=== PATIENT | female | born 1970 | race Caucasian/White ===

== ENCOUNTER 2016-10-08 07:04 | Inpatient (IN) | payer OTHER ==
[2016-10-08] VITALS (34 sets, daily range): BP systolic 103–150; BP diastolic 63–98; PULSE 35–78; RESP 15–50; TEMP 94.2–98.2; O2SAT 82–100
[~2016-10-08] VITALS: Ht 170.2 cm; Wt 71.6 kg
[2016-10-08] MEDS ORDERED: LORazepam 2 MG/ML VIAL ONE (07:19)
[2016-10-08 07:22] LABS: I-STAT POTASSIUM 2.9 MMOL/L (3.5-4.9); I-STAT SODIUM 146 MMOL/L (138-146)
[2016-10-08 07:23] LABS: AUTOMATED NEUTROPHIL # 2.8 TH/MM3 (1.8-7.7); BASOPHIL % 0.8 % (0.0-2.0); EOSINOPHIL # 0.2 TH/MM3 (0-0.4); EOSINOPHIL % 3.7 % (0.0-4.0); HEMATOCRIT 40.6 % (35.0-46.0); HEMO FLAGS DIFF FINAL; LYMPH % 33.9 % (9.0-44.0); LYMPHOCYTE # 1.8 TH/MM3 (1.0-4.8); MEAN CELL VOLUME 83.9 FL (80.0-100.0); MEAN CORPUSCULAR HGB CONC 32.3 % (32.0-36.0); MONO % 8.9 % (0.0-8.0); NEUT % 52.7 % (16.0-70.0); PLATELET COUNT 219 TH/MM3 (150-450); RED BLOOD COUNT 4.84 MIL/MM3 (4.00-5.30); RED CELL DISTRIBUTION WIDTH 16.5 % (11.6-17.2); WHITE BLOOD COUNT 5.3 TH/MM3 (4.0-11.0)
[2016-10-08] MEDS ORDERED: IOHEXOL 350 MG/ML 10 ML VIAL (for RAD DIAG) IV ONE (07:30)
[2016-10-08 07:32] LABS: APTT (PATIENT) 28.5 SEC (24.3-30.1); INTERNATIONAL NORMALIZED RATIO 1.1 RATIO; PROTHROMBIN TIME - PATIENT 12.6 SEC (9.8-11.6)
--- NOTE | 2016-10-08 07:35 | RADRPT ---
EXAM DATE/TIME: 10/08/2016 07:17 [facility] COMPARISON: No previous studies available for comparison. INDICATIONS : Stroke alert; global aphasia and paralysis in all extremites. RADIATION DOSE: 37.26 CTDIvol (mGy) This report was called by myself to Dr. Ortiz at 7: 30 hours MEDICAL HISTORY : Non-responsive. SURGICAL HISTORY : Non-responsive. ENCOUNTER: Initial ACUITY: 1 day PAIN SCALE: Non-responsive LOCATION: cranial TECHNIQUE: Multiple contiguous axial images were obtained of the head. Using automated exposure control and adj ustment of the mA and/or kV according to patient size, radiation dose was kept as low as reasonably a chievable to obtain optimal diagnostic quality images. DICOM format image data is available electro nically for review and comparison. FINDINGS: There is no evidence for intracranial hemorrhage, mass effect, mass lesions, edema, or extra-axial fl uid collections. The visualized bony structures appear intact. The ventricles are normal size for t he patient's age. There are no signs of acute infarction for technique. CONCLUSION: Unremarkable study. Elida Roman MD on October 08, 2016 at 7:30 Board Certified Radiologist. This report was verified electronically.
[2016-10-08] MEDS ORDERED: SODIUM CHLOR 0.9% 1000 ML INJ 1,000 ML IV SCH (07:38)
[2016-10-08] MEDS ORDERED: DEXAMETHASONE SOD PHOS 20 MG/5 ML VIAL IV PUSH ONE (07:45)
--- NOTE | 2016-10-08 07:45 | RADRPT ---
EXAM DATE/TIME: 10/08/2016 07:27 [facility] COMPARISON: CT BRAIN W/O CONTRAST, October 08, 2016, 7:17. INDICATIONS : Stroke alert; global aphasia and paralysis in all extremites. IV CONTRAST: 95 cc Omnipaque 350 (iohexol) IV ; Cumulative dose for multiple exams. RADIATION DOSE: 26.91 CTDIvol (mGy) ; Combined studies - Thorax/Abdomen/Pelvis MEDICAL HISTORY : Non-responsive. SURGICAL HISTORY : Non-responsive. ENCOUNTER: Initial ACUITY: 1 day PAIN SCALE: Non-responsive LOCATION: cranial TECHNIQUE: Volumetric scanning was performed using a multi-row detector CT scanner. The data was post processed with a variety of visualization algorithms including full volume maximum intensity projection, multi -planar sliding thin slab reformation, curved planar reformation, and surface rendering techniques. Using automated exposure control and adjustment of the mA and/or kV according to patient size, radiat ion dose was kept as low as reasonably achievable to obtain optimal diagnostic quality images. DICO M format image data is available electronically for review and comparison. FINDINGS: No significant vascular malformations, vessel truncation or aneurysmal dilatations are seen. CONCLUSION: Unremarkable study. Elida Roman MD on October 08, 2016 at 7:41 Board Certified Radiologist. This report was verified electronically.
[2016-10-08 07:48] LABS: BETA HCG QUANT 1 MIU/ML (0-5)
[2016-10-08] MEDS: LORazepam 2 MG/ML VIAL IV PUSH PRN ×2 (07:57→22:20)
[2016-10-08 08:00] LABS: CREATINE KINASE 73 U/L (26-192)
--- NOTE | 2016-10-08 08:09 | PD ---
HPI Chief Complaint: Stroke Alert Time Seen by Provider: 07:13 Travel History International Travel<30 days: No Contact w/Intl Traveler<30days: No Traveled to known affect area: No History of Present Illness HPI Letter and later her arrives to get some of the history. The patient on arrival is GCS([id number])=5. Apparently this patient is visiting from [facility], recently she's had multiple medication adjustments, she was taking off of her opiate pain medication as well as her benzodiazepine on the 10th of this month and was started on tizanidine. The family relates a history that the patient is giving "a lot of life lessens" to her children recently but I asked her several times if she was thinking about hurting herself and she denied. The patient 45 minutes prior to arrival this morning at approximately 06 15 was normal and then was seen by her with right wrist almost seizure-like activity. He thought that the patient was having a stroke and called 911. EMS arrived and found no focal deficits but the patient did have seizure-like activity for them and she was transported stroke alert [facility]. Patient on arrival is unable to give history but apparently did tell her prior to coming that she felt that she needed to go to the emergency department. She arrives with a ties and a being bottle for 120 pills with only 20 pills left, the daughter states that they locked up the rest of the medicine that she wouldn't need for the medication in the safe at home. The patient also did have 2 shots of alcohol last night. She is unable to give her own history at this time. [facility] Past Medical History Narrative Medical Depression, chronic pain. Past Surgical History Surgical History: Unable to Obtain Social History Alcohol Use: Yes Tobacco Use: Yes Substance Use: No Allergies-Medications (Allergen,Severity, Reaction): Coded Allergies: No Known Allergies (Unverified , 10/08/16) Reported Meds & Prescriptions Reported Meds & Active Scripts Active Reported Naproxen 375 Mg Tab 375 Mg PO BID PRN Levothyroxine (Levothyroxine Sodium) 100 Mcg Tab 100 Mcg PO DAILY Escitalopram (Escitalopram Oxalate) 10 Mg Tab 10 Mg PO DAILY Baclofen 10 Mg Tab 10 Mg PO Q8HR PRN Prednisone 10 Mg Tab 10 Mg PO DAILY Tizanidine (Tizanidine HCl) 4 Mg Cap 4 Mg PO TID Trazodone (Trazodone HCl) 100 Mg Tablet 200 Mg PO HS Review of Systems Except as stated in HPI: all other systems reviewed are Neg Physical Exam Narrative GENERAL: Well-developed well-nourished, GCS of 5, she is swallowing. SKIN: No bruising no lacerations seen on her person. HEAD: Atraumatic. Normocephalic. EYES: Pupils equal and round and reactive to light, they're dilated approximately 6 mm and equal bilaterally.. No scleral icterus. No injection or drainage. ENT: No nasal bleeding or discharge. Mucous membranes pink and moist. NECK: Trachea midline. No JVD. CARDIOVASCULAR: Regular rate and rhythm. No murmur appreciated. RESPIRATORY: No accessory muscle use. Clear to auscultation. Breath sounds equal bilaterally. GASTROINTESTINAL: Abdomen soft, non-tender, nondistended. Hepatic and splenic margins not palpable. MUSCULOSKELETAL: No obvious deformities. No clubbing. No cyanosis. No edema. NEUROLOGICAL: Awake, GCS of 5 as above. Will not follow commands. Does withdraw from pain. She is swallowing and appears to be protecting her airway. PSYCHIATRIC: Unable to assess. Data Data Last Documented VS Vital Signs Date Time Temp Pulse Resp B/P Pulse Ox O2 Delivery O2 Flow Rate FiO2 10/08/16 10:00 35 16 137/84 100 Ventilator 100 10/08/16 08:15 10/08/16 07:05 94.9 Orders Diet Npo (10/08/16 Breakfast) Activity Bed Rest (10/08/16 ) Electrocardiogram (10/08/16 ) I-Stat Creatinine (10/08/16 07:13) I-Stat Profile (10/08/16 07:13) Prothrombin Time / Inr (Pt) (10/08/16 07:13) Act Partial Throm Time (Ptt) (10/08/16 07:13) Complete Blood Count With Diff (10/08/16 07:13) Fibrinogen (10/08/16 07:13) Creatine Kinase (Cpk) (10/08/16 07:13) Troponin I (10/08/16 07:13) Ua Includes Microscopic (10/08/16 07:13) Drug Screen, Random Urine (10/08/16 07:13) Type And Screen (10/08/16 07:13) Ct Brain W/O Iv Contrast(Rout) (10/08/16 ) Cta Brain W Iv Contrast W 3d (10/08/16 07:13) Cta Neck W Iv Contrast W 3d (10/08/16 07:13) Beta Hcg (Quant/Titer) (10/08/16 07:13) Consult Neurology (10/08/16 ) Blood Glucose (10/08/16 07:13) Ecg Monitoring (10/08/16 07:13) Neuro Checks Q2HX12,Q4H (10/08/16 07:13) Nursing Bedside Swallow Assess .ONCE (10/08/16 07:13) Iv Access Insert/Monitor (10/08/16 07:13) NPO (10/08/16 07:13) Oximetry (10/08/16 07:13) Oxygen Administration (10/08/16 07:13) Resp Oxygen Porfirio C Titrat 1-4 L (10/08/16 07:13) Cath For Specimen (10/08/16 07:13) Lorazepam Inj (Ativan Inj) (10/08/16 07:19) Mri Brain W/O Contrast (10/08/16 ) Iohexol 350 Inj (Omnipaque 350 Inj) (10/08/16 07:30) (Hub Use Only)Inp Phy Cons/Ref (10/08/16 ) Lactic Acid Sepsis Protocol (10/08/16 07:38) Blood Culture (10/08/16 07:38) Sodium Chlor 0.9% 1000 Ml Inj (Ns 1000 M (10/08/16 07:38) Drug Screen, Random Urine (10/08/16 07:38) Alcohol (Ethanol) (10/08/16 07:38) Tylenol (Acetaminophen) (10/08/16 07:38) Salicylates (Aspirin) (10/08/16 07:38) Lorazepam Inj (Ativan Inj) (10/08/16 07:45) Dexamethasone Inj (Decadron Inj) (10/08/16 07:45) Thyroid Stimulating Hormone (10/08/16 07:44) Free T3 (10/08/16 07:44) Free Thyroxine (T4) (10/08/16 07:44) Levetiracetam 1000 Mg Inj (Keppra 1000 M (10/08/16 08:15) Succinylcholine Inj (Quelicin Inj) (10/08/16 08:15) Etomidate Inj (Amidate Inj) (10/08/16 08:15) Etomidate Inj (Amidate Inj) (10/08/16 08:13) Succinylcholine Inj (Quelicin Inj) (10/08/16 08:13) Propofol 1000 Mg/100 Ml Inj (Diprivan 10 (10/08/16 08:30) ^ Infusion (10/08/16 08:27) RASS (10/08/16 08:27) Neurological Rass Scale CEDRIC.Q2H (10/08/16 08:27) Chest, Single Ap (10/08/16 ) Propofol 1000 Mg/100 Ml Inj (Diprivan 10 (10/08/16 08:29) Restraints Non-Violent CEDRIC.Q3H (10/08/16 09:34) Electrocardiogram (10/08/16 ) Arterial Blood Gas (Abg) (10/08/16 ) Admit Order (Ed Use Only) (10/08/16 ) Labs Laboratory Tests Test 10/08/16 10/08/16 10/08/16 10/08/16 00:00 07:10 08:07 08:10 Urine Opiates Screen NEG Urine Barbiturates Screen NEG Urine Amphetamines Screen NEG Urine Benzodiazepines Screen POS Urine Cocaine Screen NEG Urine Cannabinoids Screen NEG White Blood Count 5.3 TH/MM3 Red Blood Count 4.84 MIL/MM3 Hemoglobin 13.1 GM/DL Bedside Hemoglobin 13.3 G/DL Hematocrit 40.6 % Bedside Hematocrit 39.0 % Mean Corpuscular Volume 83.9 FL Mean Corpuscular Hemoglobin 27.0 PG Mean Corpuscular Hemoglobin 32.3 % Concent Red Cell Distribution Width 16.5 % Platelet Count 219 TH/MM3 Mean Platelet Volume 6.8 FL Neutrophils (%) (Auto) 52.7 % Lymphocytes (%) (Auto) 33.9 % Monocytes (%) (Auto) 8.9 % Eosinophils (%) (Auto) 3.7 % Basophils (%) (Auto) 0.8 % Neutrophils # (Auto) 2.8 TH/MM3 Lymphocytes # (Auto) 1.8 TH/MM3 Monocytes # (Auto) 0.5 TH/MM3 Eosinophils # (Auto) 0.2 TH/MM3 Basophils # (Auto) 0.0 TH/MM3 CBC Comment DIFF FINAL Differential Comment Prothrombin Time 12.6 SEC Prothromb Time International 1.1 RATIO Ratio Activated Partial 28.5 SEC Thromboplast Time Fibrinogen 185 mg/dL Bedside Sodium 146 MMOL/L Bedside Potassium 2.9 MMOL/L Bedside Chloride 106 MMOL/L Bedside Blood Urea Nitrogen 8 MG/DL Bedside Creatinine 0.5 MG/DL Bedside Glucose 84 MG/DL Total Creatine Kinase 73 U/L Troponin I LESS THAN 0.02 NG/ML Free Thyroxine 1.52 NG/DL Free Triiodothyronine (T3) 2.40 PG/ML pg/dL Thyroid Stimulating Hormone 1.050 uIU/ML 3rd Gen Human Chorionic Gonadotropin, 1 MIU/ML Quant Acetaminophen Level 4.0 MCG/ML Ethyl Alcohol Level LESS THAN 3 MG/DL Blood Type B POSITIVE Antibody Screen NEGATIVE Blood Bank Comment Salicylates Level 3.0 MG/DL Lactic Acid Level 1.9 mmol/L [facility] Medical Screen Exam Complete: Yes Emergency Medical Condition: Yes Differential Diagnosis Altered mental status, stroke seems unlikely but the patient was activated stroke alert prior to arrival, overdose, suicide attempt as a possibility, bradycardia, lecture led abnormality, arrhythmia, benzodiazepine withdrawal, opiate withdrawal per Narrative Course Patient was roomed in the emergency department, GCS of 5 on arrival but is swallowing and does appear to be protecting her airway. The patient was activated the stroke alert but the history is highly suggestive of another cause. The patient was brought to CAT scan and shows no noncontrast abnormality , CTA and CTA neck were unremarkable as well. This further suggest another cause is possible. An MRI has been ordered for definitive purposes. The patient was discussed with poison control by me, I believe that there is a strong possibility this may be an intentional type tizanidine overdose. Per poison control treated symptomatically with atropine, intubation is necessary, otherwise symptomatic management. The patient was GCS of 5 and needing to go to MRI will be intubated prophylactically for airway protection. Intubation was performed smoothly with kaleidoscope and patient had no adverse effects. After intubation the patient was seen moving all 4 extremity's and attempting to self extubate. She was started on propofol drip. I was given for possible seizure-like activity in the ER though I think these are more pseudoseizures as a possibility. The patient was also given some Ativan. Keppra was ordered. The patient did become somewhat bradycardic at the latter part of her ER stay with heart rates in the mid 30s. A milligram of atropine was given with good response. She had no hypotensive episodes while in the emergency department. The patient was discussed with Dr. Marco Gan for admission to hospital and he is agreeable. I had asked her to confirm that the medication is at home and the safe and his son is at home in [place] and has gone to the safe and there are no pills in the safe. It is estimated at approximately 40 tablets of the tizanidine are missing. The family was at bedside and has been updated as to my impression of the patient. Critical Care Narrative Aggregate critical care time was 35 minutes. Time to perform other separately billable procedures was not included in the critical care time. My time did not include minutes spent treating any other patients simultaneously or on activities that did not directly contribute to the patient's treatment. The services I provided to this patient were to treat and/or prevent clinically significant deterioration that could result in: , disability, organ failure. I provided critical care services requiring my management, as noted below: Chart data review, documentation time, medication orders and management, vital sign assessments/reviewing monitor data, ordering and reviewing lab tests, ordering and interpreting/reviewing x-rays and diagnostic studies, care of the patient and discussion of the patient with the admitting physicians. Stroke Alert NIHSS NIH Stroke Scale Result: 28 NIHSS Time Completed: 07:15 Thrombolytic Contraindications Contraindications Comment: Medical cause much more likely than thromboembolic event. Also patient with multiple seizure-like activity. Procedures Procedure Narrative After the risks and benefits were discussed the following procedure was performed: INTUBATION: The patient was put in optimal position for the procedure. Rapid sequence intubation was initiated by me using 20 milligrams of etomidate IV and 100 milligrams of succinylcholine IV. The patient was intubated with a 7.5 cuffed endotracheal tube. Tube placement was confirmed by visualization of the tube and balloon passing through the cords, capnometry and subsequent chest x-ray. Breath sounds were equal and well aerated bilaterally postintubation. No breath sounds over stomach. Patient tolerated procedure well. Diagnosis Diagnosis: Primary Impression: Altered mental status Additional Impression: Overdose of muscle relaxant Admitting Physician Requests: Admit Condition: Alex Diaz MD Oct 08, 2016 08:09
[2016-10-08] MEDS ORDERED: ETOMIDATE 20 MG/10 ML VIAL ONE (08:13)
[2016-10-08] MEDS ORDERED: SUCCINYLCHOLINE CHLORIDE 200 MG/10 ML VIAL ONE (08:13)
--- NOTE | 2016-10-08 08:13 | RADRPT ---
EXAM DATE/TIME: 10/08/2016 07:27 [facility] COMPARISON: CTA BRAIN W 3D RECON, October 08, 2016, 7:27. CT BRAIN W/O CONTRAST, October 08, 2016, 7:17. INDICATIONS : Stroke alert; global aphasia and paralysis in all extremites. IV CONTRAST: 95 cc Omnipaque 350 (iohexol) IV ; Cumulative dose for multiple exams. RADIATION DOSE: 26.91 CTDIvol (mGy) ; Combined studies MEDICAL HISTORY : Non-responsive. SURGICAL HISTORY : Non-responsive. ENCOUNTER: Initial ACUITY: 1 day PAIN SCALE: Non-responsive LOCATION: neck Elevated flow velocities and ICA/CCA ratios have been found to correlate with increased degrees of vessel stenosis, calculated as percentage of diameter relative to a normal segment of distal ICA/CCA. TECHNIQUE: Volumetric scanning was performed using a multirow detector CT scanner. The data was post processed with a variety of visualization algorithms including full-volume maximum intensity projection, multip lanar sliding thin-slab reformation, curved-planar reformation, and surface-rendering techniques. Us ing automated exposure control and adjustment of the mA and/or kV according to patient size, radiatio n dose was kept as low as reasonably achievable to obtain optimal diagnostic quality images. DICOM f ormat image data is available electronically for review and comparison. FINDINGS: AORTIC ARCH: There is a three-vessel origin of the great vessels from the aorta. No evidence of ostial narrowing. RIGHT CAROTID: The common carotid artery is intact. The carotid bulb has a normal configuration without ulceration o r narrowing. The internal carotid artery lumen is smooth without stenosis. The external carotid janny ry is intact. LEFT CAROTID: The common carotid artery is intact. The carotid bulb has a normal configuration without ulceration or narrowing. The internal carotid artery lumen is smooth without stenosis. The external carotid ar hal is intact. VERTEBRALS: The vertebral arteries have a symmetric diameter. No stenotic lesions are seen. CONCLUSION: Normal examination. Elida Roman MD on October 08, 2016 at 8:10 Board Certified Radiologist. This report was verified electronically.
[2016-10-08] MEDS ORDERED: levETIRAcetam 1000 MG INJ 100 ML IV ONE (08:15)
[2016-10-08] MEDS ORDERED: SUCCINYLCHOLINE CHLORIDE 200 MG/10 ML VIAL IM ONE (08:15)
[2016-10-08] MEDS ORDERED: ETOMIDATE 20 MG/10 ML VIAL IV PUSH ONE (08:15)
[2016-10-08] MEDS ORDERED: PROPOFOL 1000 MG/100 ML INJ 100 ML ONE (08:29)
[2016-10-08 08:32] LABS: AMPHETAMINE, URINE NEG (NEG); BARBITURATES, URINE NEG (NEG); COCAINE, URINE NEG (NEG)
[2016-10-08] MEDS ORDERED: NAPR375T PO (08:34)
[2016-10-08] MEDS ORDERED: BACL10TA PO (08:34)
[2016-10-08] MEDS ORDERED: ESCI10TA PO (08:34)
[2016-10-08] MEDS ORDERED: LEVO100T5 PO (08:34)
[2016-10-08] MEDS ORDERED: TIZA4CAP3 PO (08:34)
[2016-10-08] MEDS ORDERED: PRED10 PO (08:34)
[2016-10-08] MEDS ORDERED: TRAZ100T6 PO (08:34)
[2016-10-08 08:57] LABS: FREE T3 2.4 PG/ML (2.18-3.98); FREE T4 1.52 NG/DL (0.76-1.46)
--- NOTE | 2016-10-08 09:01 | RADRPT ---
EXAM DATE/TIME: 10/08/2016 08:30 [facility] COMPARISON: No previous studies available for comparison. INDICATIONS : Stroke alert; global aphasia and paralysis in all extremites. MEDICAL HISTORY : None. SURGICAL HISTORY : None. ENCOUNTER: Initial ACUITY: 1 day PAIN SCORE: Non-responsive. LOCATION: Bilateral chest FINDINGS: ET tube is present with tip overlapping approximately 3 cm above the nona. NG tube is present with tip in the stomach. Slight linear atelectasis is seen in both lung bases without focal consolidation. There is a line overlapping the right hemithorax probably a skin fold. Heart and mediastinum are unr emarkable for technique. There is slight prominence of the left hilar shadow may be technical, howeve r consolidation or mass in this area is difficult to exclude. CONCLUSION: Slight prominence of the left hilar shadow probably technical and attention to this area on follow up chest x-rays is suggested. Elida Roman MD on October 08, 2016 at 8:58 Board Certified Radiologist. This report was verified electronically.
[2016-10-08] MEDS: PROPOFOL 1000 MG/100 ML INJ 100 ML IV SCH ×2 (09:15→10:52)
--- NOTE | 2016-10-08 10:07 | RADRPT ---
EXAM DATE/TIME: 10/08/2016 09:27 [facility] COMPARISON: CT BRAIN W/O CONTRAST, October 08, 2016, 7:17. INDICATIONS : Aphasia. MEDICAL HISTORY : Dystonia. SURGICAL HISTORY : Fusion, cervical. ENCOUNTER: Initial ACUITY: 1 day PAIN SCORE: 0/10 LOCATION: cranial TECHNIQUE: Multiplanar, multisequence MRI of the brain was performed without contrast. 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 There is no evidence for intracranial hemorrhage, edema, or extra-axial fluid collections. The ventricles are normal size for the patient's age. There are no signs of acute infarction for technique. The diffusion portion is unremarkable. CONCLUSION: Unremarkable study except for small pineal cyst of no clinical significance. Elida Roman MD on October 08, 2016 at 10:01 Board Certified Radiologist. This report was verified electronically.
[2016-10-08] MEDS ORDERED: ATROPINE SULFATE 1 MG/ML VIAL ONE (10:09)
[2016-10-08] MEDS ORDERED: ATROPINE SULFATE 1 MG/10 ML SYRINGE IV PUSH ONE (10:15)
[2016-10-08 10:41] LABS: BLOOD GAS BASE EXCESS 1.3 mmol/L (-2-2); BLOOD GAS CARBOXYHEMOGLOBIN 2.7 % (0-4); BLOOD GAS HCO3 25 mmol/L (22-26); BLOOD GAS METHEMOGLOBIN 0.8 % (0-2); BLOOD GAS O2 HGB SATURATION 96 % (90-100); BLOOD GAS OXYGEN CONTENT 18.1 Vol % (12.0-20.0); BLOOD GAS PCO2 39 mmHg (38-42); BLOOD GAS PO2 337 mmHG (61-120); BLOOD GAS TOTAL HGB 12.7 G/DL (12.0-16.0); CRITICAL VALUE NO; DRAW SITE RT RADIAL; FIO2 100 %; NUMBER OF ARTERIAL PUNCTURES 1; OXYGEN DEVICE VENTILATOR; STAT YES; TEMP CORR TO 98.6; ULNAR PULSE PRESENT; VENT SETTINGS 500/16/+5
[2016-10-08] MEDS ORDERED: POTASSIUM CHLOR 20 MEQ PREMIX 100 ML IV ONE (11:00)
[2016-10-08] MEDS ORDERED: SODIUM PHOSPHATE INJ 30 MMOL in SODIUM CHLOR 0.9% 250 ML INJ 240 ML IV PRN (12:00)
[2016-10-08] MEDS ORDERED: POTASSIUM CHLOR 40 MEQ PREMIX 100 ML IV PRN ×2 (12:00)
[2016-10-08] MEDS ORDERED: POTASSIUM PHOSPHATE INJ 30 MMOL in SODIUM CHLOR 0.9% 250 ML INJ 250 ML IV PRN (12:00)
[2016-10-08] MEDS ORDERED: MAGNESIUM SULFATE INJ 2 GM in SODIUM CHLORIDE 0.9% INJ 96 ML IV PRN (12:00)
[2016-10-08] MEDS ORDERED: MAGNESIUM OXIDE 400 MG TAB PO PRN (12:00)
[2016-10-08] MEDS: PANTOPRAZOLE SODIUM 40 MG VIAL IV SCH (12:00)
[2016-10-08] MEDS: DEXT 5%-NACL 0.9% 1000 ML INJ 1,000 ML IV SCH ×2 (12:00→23:55)
[2016-10-08] MEDS ORDERED: CHLORHEXIDINE GLUCONATE 2 % 1 PACK (2 CLOTHS) TOP PRN (12:00)
[2016-10-08] MEDS ORDERED: POTASSIUM CHLOR 20 MEQ PREMIX 100 ML IV PRN ×2 (12:00)
[2016-10-08] MEDS ORDERED: BISACODYL 10 MG SUPP RECTAL PRN (12:00)
[2016-10-08] MEDS ORDERED: DEXTROSE 50% IN WATER 50 ML VIAL(D50) IV PRN (12:00)
[2016-10-08] MEDS: DOCUSATE SODIUM 50 MG/SENNA 8.6 MG TAB PO SCH ×2 (12:00→21:00)
[2016-10-08] MEDS ORDERED: POTASSIUM PHOSPHATE MONOBASIC 500 MG TAB PO/TUBE PRN (12:00)
[2016-10-08] MEDS ORDERED: MISCELLANEOUS NURSING INFORMATION XX SCH (12:00)
[2016-10-08] MEDS ORDERED: LACTULOSE SYRUP 20 GM/30 ML CUP PO PRN (12:00)
[2016-10-08] MEDS ORDERED: MAGNESIUM SULFATE INJ 4 GM in SODIUM CHLORIDE 0.9% INJ 92 ML IV PRN (12:00)
[2016-10-08] MEDS ORDERED: POTASSIUM PHOSPHATE MONOBASIC 500 MG TAB PO PRN (12:00)
[2016-10-08] MEDS ORDERED: SENNOSIDES 8.6 MG TAB PO PRN (12:00)
[2016-10-08] MEDS ORDERED: MAGNESIUM HYDROXIDE SUSP 30 ML CUP PO PRN (12:00)
[2016-10-08] MEDS ORDERED: GLUCAGON 1 MG/ML VIAL OTHER PRN (12:00)
[2016-10-08] MEDS: RESP: ALBUTEROL 2.5 MG/IPRATROPIUM 0.5 MG NEB (SCH) INH ×3 (12:00→20:59)
[2016-10-08] MEDS: INSULIN NovoLIN REGULAR SUPPLEMENTAL SCALE SQ SCH ×3 (12:00→20:00)
[2016-10-08] MEDS ORDERED: POTASSIUM CHLORIDE 25 MEQ EFFERVESCENT TAB PO PRN (12:00)
[2016-10-08] MEDS ORDERED: fentaNYL DRIP 250 ML IV SCH (12:15)
--- NOTE | 2016-10-08 12:50 | MH ---
cc: SHRAVAN SORENSEN M.D. DATE OF ADMISSION: 10/08/2016 DATE OF : 1970 HISTORY OF PRESENT ILLNESS: The patient is a 46-year-old female with multiple orthopedic surgeries on her neck, back, and knee who presented to [facility] emergency department with altered mental status. The patient is visiting from [facility], and on arrival she was found to have a GCS score of 5. The patient was last seen normal at approximately 06:00 a.m. and the family thought that she was having a seizure-like activity. He called 9-1-1 and up on EMS arrival no focal deficit seen. However, the patient did have seizure like activity for them and she was transported as a stroke alert to [facility]. There is also a question of drug overdose. She is on <<2:40>> and trazodone at home. Her urine drug screen was positive for benzodiazepines and negative for barbiturates, amphetamines, cocaine and cannabinoids. She had a stat CT scan of the brain which was unremarkable. In addition the patient underwent CTA of the head, a CTA of the neck and MRI of the brain which were all unremarkable. The patient was intubated in the emergency department with etomidate, succinylcholine and place on full mechanical ventilation. In addition she was sedated with Diprivan infusion. LABORATORY FINDINGS: Her laboratory data significant for hypokalemia with a potassium level of 2.9. ABG post intubation showed a pH of 7.43, CO2 39, pAO2 337, bicarb 25, sats of 96. Chest x-ray Showed ET tube above the nona by 3 cm, slightly atelectasis in both lung bases without any focal consolidation. Most of the history was obtained from reviewing medical records. PAST MEDICAL HISTORY Hypothyroidism. PAST SURGICAL HISTORY Previous cholecystectomy. Previous hysterectomy. L4-5 Fusion Multiple back, knee and neck surgeries. ALLERGIES NO KNOWN DRUG ALLERGIES MEDICATIONS: 1. Naprosyn 2. Levothyroxine. 3. Baclofen 4. Prednisone 5. <<5:59>> 6. Trazodone FAMILY HISTORY Noncontributory. REVIEW OF SYSTEMS As per HPI. Rest of the review of systems is limited as the patient is intubated. PHYSICAL EXAMINATION: IN GENERAL: A 46-year-old female intubated for airway protection. VITAL SIGNS: Afebrile, pulse of 50, blood pressure 104/63, saturation at 98% vent setting assist control rate of 14, tidal volume 558, rate of 16, PEEP of 5, FIO2 40%. HEAD, EYES, EARS, NOSE, AND THROAT: Atraumatic, normocephalic pupil equal round reactive to light and accommodation and dilated approximately 6 mm bilaterally. Nonicteric sclerae. Oral mucosa within normal limits. NECK: Supple. No JVD, adenopathy or thyromegaly. Trachea midline. Orally intubated. CARDIOVASCULAR SYSTEM: Cardiovascular Examination with regular rate and rhythm. Normal S1-S2. No murmurs, rubs or gallops noted. LUNGS: Pulmonary exam bilateral equal entry. No rales or wheezing. ABDOMEN: The abdomen is soft. Nontender, no distension. Positive bowel sounds. EXTREMITIES: No cyanosis, clubbing or edema. NEUROLOGIC: Intubated and sedated with Diprivan. LABORATORY DATA Point of care sodium 146, potassium 2.9, chloride 106, BUN 8, creatinine 0.5, glucose 84, lactic acid 1.9, troponin less than 0.02, TSH of 1.0 and free T3 2.4, free T4 1.5, WBC 5.3, hemoglobin 13, hematocrit 40, platelet count 219, INR 1.1, PT 12.6, PTT 28.5. Urine drug screen positive for benzodiazepines. Salicylate III Tylenol level of 4.0, alcohol level less than three. RADIOGRAPHY CT brain, CTA of the head, CTA neck, MRI of brain all were unremarkable. EKG showed sinus bradycardia. There is marked left axis deviation following her repeat EKG showed sinus bradycardia 47 beats per minute left anterior fascicular block. IMPRESSION Vent dependent respiratory failure. Encephalopathy. Drug overdose. Bradycardia. Hypokalemia. Hypothyroidism. RECOMMENDATIONS Continue with Diprivan infusion for sedation and daily sedation vacation. Monitor neuro status closely. CT head, CT of the neck and MRI of the brain were all unremarkable. We will obtain EEG to rule out subclinical seizures. Monitor heart rate and blood pressure closely and maintain MAP greater than 65 mmHg. Lactic acid level measured at 1.9, TSH . We will obtain 2-D echo to evaluate LV function. Check cardiac enzymes with troponins. Monitor renal function Is and Os and will place on electrolyte replacement protocol. The patient will need potassium replacement. Place on IV fluids D5 NS at [address] on Protonix 40 mg IV daily for GI prophylaxis and continue IV fluids as stated above. Start nutrition support within the next 24 hours if remains intubated. Monitor CBC and for signs of infections which include fever and WBC. We will hold off on antibiotics at this time as there is no evidence of any infectious process. I will obtain a urinalysis with culture if indicated. Place on sliding scale insulin with Accu-Chek's for glycemic control. GI prophylaxis with Protonix 40 mg daily and DVT prophylaxis with EEG with SCDs and heparin Subcu. Further recommendations will be based on hospital course. MD HIEU Ventura/joshua /12:14 PM /12:32 PM
[2016-10-08 12:53] LABS: AUTOMATED NEUTROPHIL # 5.8 TH/MM3 (1.8-7.7); BASOPHIL % 0.4 % (0.0-2.0); EOSINOPHIL % 0.4 % (0.0-4.0); HEMATOCRIT 41.6 % (35.0-46.0); HEMO FLAGS DIFF FINAL; LYMPHOCYTE # 0.7 TH/MM3 (1.0-4.8); MEAN CELL VOLUME 83.7 FL (80.0-100.0); MEAN CORPUSCULAR HEMOGLOBIN 27.9 PG (27.0-34.0); MEAN CORPUSCULAR HGB CONC 33.3 % (32.0-36.0); MONO % 3.7 % (0.0-8.0); NEUT % 85.5 % (16.0-70.0); PLATELET COUNT 191 TH/MM3 (150-450); RED BLOOD COUNT 4.98 MIL/MM3 (4.00-5.30); RED CELL DISTRIBUTION WIDTH 16.5 % (11.6-17.2); WHITE BLOOD COUNT 6.8 TH/MM3 (4.0-11.0)
[2016-10-08] MEDS: HEPARIN SODIUM - SQ 10,000 UNITS/ML VIAL SQ SCH (13:00)
[2016-10-08 13:24] LABS: ANION GAP 6 MEQ/L (5-15); AST (GOT) 21 U/L (15-37); BICARBONATE 24.7 MEQ/L (21.0-32.0); BLOOD UREA NITROGEN 10 MG/DL (7-18); CHLORIDE 108 MEQ/L (98-107); GLOMERULAR FILTRATION RATE 129 ML/MIN (>89); MAGNESIUM 1.9 MG/DL (1.5-2.5); POTASSIUM 3.7 MEQ/L (3.5-5.1); SODIUM (NA) 139 MEQ/L (136-145)
[2016-10-08 13:25] LABS: ALT (GPT) 17 U/L (10-53)
[2016-10-08 13:29] LABS: ALKALINE PHOSPHATASE 83 U/L (45-117); TOTAL BILIRUBIN ADULT 0.5 MG/DL (0.2-1.0)
[2016-10-08 13:40] LABS: CREATINE KINASE 82 U/L (26-192)
--- NOTE | 2016-10-08 20:45 | ECHRPT ---
Indication: EVALUATE LV FUNCTION CONCLUSIONS Normal left ventricular size. Wall thickness is normal. The left ventricular systolic function is hyperdynamic with an estimated ejection fraction in the ra nge of 65- 70%. No regional wall motion abnormalities are present. Trace mitral valve regurgitation. There is mild tricuspid valve regurgitation. There is estimated mild pulmonary hypertension present (range 40-50 mmHg). The pulmonary valve is normal with mild pulmonary insufficiency. The inferior vena cava is dilated at 29 mm. There is minimal decrease with inspiration. BP: 130 / 75 HR: Rhythm: Sinus MEASUREMENTS (Male / Female) Normal Values Technical Quality:Fair 2D ECHO LVOT Diameter 1.9 cm Aortic Root Diameter 3.1 cm M-MODE LV Diastolic Diameter MM 5.4 cm 4.2 - 5.9 / 3.9 - 5.3 cm LV Systolic Diameter MM 3.7 cm LV Ejection Fraction MM Teich 57.6 % IVS Diastolic Thickness MM 0.9 cm 0.6 - 1.0 / 0.6 - 0.9 cm LVPW Diastolic Thickness MM 0.8 cm 0.6 - 1.0 / 0.6 - 0.9 cm LV Relative Wall Thickness MM 0.3 0.24 - 0.42 / 0.22 - 0.42 LV Mass Index MM 89.8 g/m 49 - 115 / 43 - 95 g/m DOPPLER AV Peak Velocity 157.0 cm/s AV Peak Gradient 9.9 mmHg AV Mean Gradient 5.0 mmHg AV Velocity Time Integral 34.3 cm LVOT Peak Velocity 115.0 cm/s LVOT Peak Gradient 5.3 mmHg LVOT Velocity Time Integral 27.6 cm AV Area Cont Eq vti 2.3 cm AV Area Cont Eq pk 2.1 cm Mitral E Point Velocity 88.3 cm/s Mitral A Point Velocity 55.3 cm/s Mitral E to A Ratio 1.6 LV E' Lateral Velocity 11.7 cm/s Mitral E to LV E' Lateral Ratio 7.6 LV E' Septal Velocity 9.0 cm/s Mitral E to LV E' Septal Ratio 9.8 TR Peak Velocity 297.0 cm/s TR Peak Gradient 35.0 mmHg PV Peak Velocity 61.7 cm/s PV Peak Gradient 1.5 mmHg FINDINGS LEFT VENTRICLE Normal left ventricular size. Wall thickness is normal. The left ventricular systolic function is hyperdynamic with an estimated ejection fraction in the ra nge of 65- 70%. No regional wall motion abnormalities are present. Left ventricular diastolic function parameters are normal. MITRAL VALVE Structurally normal mitral valve. Trace mitral valve regurgitation. TRICUSPID VALVE Structurally normal tricuspid valve. There is mild tricuspid valve regurgitation. There is estimated mild pulmonary hypertension present (range 40-50 mmHg). PULMONARY VALVE The pulmonary valve is normal with mild pulmonary insufficiency. VESSELS The inferior vena cava is dilated at 29 mm. There is minimal decrease with inspiration. Paloma Garcia MD, FACC (Electronically Signed) Final Date:08 October 2016 20:40
[2016-10-08] MEDS: ONDANSETRON HCL 4 MG/2 ML VIAL IV PUSH PRN (22:11)
[2016-10-09] VITALS (17 sets, daily range): BP systolic 101–150; BP diastolic 67–83; PULSE 41–124; RESP 19–34; TEMP 97.6–98.6; O2SAT 95–100
[2016-10-09] MEDS: RESP: ALBUTEROL 2.5 MG/IPRATROPIUM 0.5 MG NEB (SCH) INH ×4 (03:58→21:12)
[2016-10-09] MEDS: INSULIN NovoLIN REGULAR SUPPLEMENTAL SCALE SQ SCH ×7 (04:00→20:00)
[2016-10-09] MEDS: CHLORHEXIDINE GLUCONATE 2 % 1 PACK (2 CLOTHS) TOP SCH (04:00)
[2016-10-09] MEDS: HEPARIN SODIUM - SQ 10,000 UNITS/ML VIAL SQ SCH ×2 (04:10→14:20)
[2016-10-09] MEDS: ONDANSETRON HCL 4 MG/2 ML VIAL IV PUSH PRN ×3 (04:10→11:56)
[2016-10-09 05:00] LABS: ANION GAP 8 MEQ/L (5-15); AST (GOT) 16 U/L (15-37); BICARBONATE 27.9 MEQ/L (21.0-32.0); BLOOD UREA NITROGEN 9 MG/DL (7-18); CHLORIDE 108 MEQ/L (98-107); GLOMERULAR FILTRATION RATE 107 ML/MIN (>89); MAGNESIUM 1.8 MG/DL (1.5-2.5); POTASSIUM 3.6 MEQ/L (3.5-5.1); SODIUM (NA) 144 MEQ/L (136-145)
[2016-10-09 05:01] LABS: ALT (GPT) 20 U/L (10-53)
[2016-10-09 05:04] LABS: ALKALINE PHOSPHATASE 82 U/L (45-117); TOTAL BILIRUBIN ADULT 0.9 MG/DL (0.2-1.0)
[2016-10-09] MEDS ORDERED: MORPHINE SULFATE 4 MG/ML INJ IV PUSH ONE (06:30)
[2016-10-09] MEDS ORDERED: MORPHINE SULFATE 8 MG/ML INJ ONE ×2 (06:34→18:29)
[2016-10-09] MEDS: PANTOPRAZOLE SODIUM 40 MG VIAL IV SCH (07:44)
[2016-10-09] MEDS: DOCUSATE SODIUM 50 MG/SENNA 8.6 MG TAB PO SCH ×2 (07:45→20:38)
[2016-10-09] MEDS: predniSONE 10 MG TAB PO SCH (07:45)
[2016-10-09] MEDS ORDERED: ALPRAZolam 0.25 MG TAB PO ONE (08:15)
[2016-10-09] MEDS ORDERED: fentaNYL 75 MCG/HR PATCH T-DERMAL ONE (08:15)
--- NOTE | 2016-10-09 08:58 | HHI.PR ---
Subjective Remarks Dry heaving. C/O chronic neck pain for which she reports that was previously managed with Valium and Fentanyl patch. Valium was discontinued about a week ago and Fentanyl dose decreased to 75 mcg. She states 75 mg was not working for her. Briefly mentioned that she up the dose but would not elaborate when I asked her about that. Objective Vitals Vital Signs Date Time Temp Pulse Resp B/P Pulse Ox O2 Delivery O2 Flow Rate FiO2 10/09/16 07:55 97 10/09/16 06:00 48 10/09/16 04:00 79 10/09/16 04:00 79 34 96 10/09/16 02:00 47 10/09/16 00:00 97.6 41 19 101/67 95 10/09/16 00:00 41 10/08/16 23:00 42 10/08/16 23:00 42 31 126/78 98 10/08/16 20:00 98.2 61 42 103/69 99 10/08/16 20:00 98.2 61 42 103/69 99 10/08/16 20:00 61 10/08/16 18:30 40 39 97 10/08/16 18:00 47 32 115/68 96 10/08/16 18:00 43 10/08/16 17:30 46 39 98 10/08/16 17:00 50 25 132/68 97 10/08/16 16:30 50 44 97 10/08/16 16:00 43 10/08/16 16:00 40 28 110/68 96 10/08/16 15:30 45 45 95 10/08/16 15:01 57 50 119/84 95 10/08/16 15:00 54 46 97 10/08/16 15:00 98.0 43 16 115/68 99 10/08/16 15:00 98.0 48 16 142/78 98 10/08/16 14:45 99 Room Air 10/08/16 14:30 49 43 98 10/08/16 14:01 46 31 142/69 100 10/08/16 14:00 45 32 100 10/08/16 14:00 41 10/08/16 13:30 46 32 100 10/08/16 13:21 40 10/08/16 13:20 49 10/08/16 13:01 53 34 130/75 100 10/08/16 13:00 98.0 42 16 115/68 99 10/08/16 13:00 61 37 82 10/08/16 12:30 37 31 100 10/08/16 12:00 41 10/08/16 12:00 98.0 49 16 130/75 99 10/08/16 11:42 98.0 48 16 145/90 98 10/08/16 11:00 100 100 10/08/16 10:57 55 16 148/98 100 Ventilator 2 40 10/08/16 10:44 100 Ventilator 40 10/08/16 10:40 60 16 142/89 100 Ventilator 100 10/08/16 10:15 78 16 135/80 100 Ventilator 100 10/08/16 10:00 35 16 137/84 100 Ventilator 100 10/08/16 09:15 99 10/08/16 09:00 40 16 137/80 100 Ventilator 100 I/O 10/08/16 10/08/16 10/08/16 10/09/16 10/09/16 10/09/16 06:59 14:59 22:59 06:59 14:59 22:59 Intake Total 1156 ml 240 ml Output Total 1500 ml 400 ml Balance -344 ml -160 ml Intake Oral 240 ml 0 ml IV Total 916 ml 240 ml Output Urine Total 1500 ml 400 ml # Voids 0 Result Diagram: 10/08/16 1220 10/09/16 0334 Imaging Last Impressions Neck CTA 10/08/16712 Signed Impressions: Service Date/Time: Saturday, October 08, 2016 07:27 - CONCLUSION: Normal examination. Elida Roman MD Head CTA 10/08/16712 Signed Impressions: Service Date/Time: Saturday, October 08, 2016 07:27 - CONCLUSION: Unremarkable study. Elida Roman MD Head CT 10/08/16 0000 Signed Impressions: Service Date/Time: Saturday, October 08, 2016 07:17 - CONCLUSION: Unremarkable study. Elida Roman MD Chest X-Ray 10/08/16 0000 Signed Impressions: Service Date/Time: Saturday, October 08, 2016 08:30 - CONCLUSION: Slight prominence of the left hilar shadow probably technical and attention to this area on follow up chest x-rays is suggested. 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 Elida Roman MD Objective Remarks GENERAL: Patient appearing older than stated age. CARDIOVASCULAR: Heart rate in the 40s and regular rhythm without murmurs, gallops, or rubs. RESPIRATORY: Good respiratory efforts. Breath sounds equal and clear to auscultation bilaterally. GASTROINTESTINAL: Abdomen soft, non-tender, non-distended. Normal active bowel sounds MUSCULOSKELETAL: Extremities without cyanosis, or edema. NEURO: Alert & Oriented. Moves all ext x4. Falls asleep mid conversation. PSYCH: Very irritable. A/P Assessment and Plan 46-year-old female initially brought in as a stroke alert, intubated for airway protection. Probable drug overdose.?Fentanyl. Patient refused to elaborate on what she took at home. She has been extubated and is stable on room air. However continues to complain of intractable nausea and dry heaving. She has chronic neck pain and also complains of abdominal pain requesting narcotics. Her heart rate is persistently low in the 30s to 40s. Toxic metabolic encephalopathy: Likely secondary to drug overdose,? Fentanyl - Resolved. Patient reports her pain management doctor discontinued all of her narcotics except for fentanyl 75 g patch. She was reportedly started on baclofen and Zanaflex for chronic neck pain. Given the patient's low heart rate and lack of objective evidence of pain, appears comfortable on exam. Continue Fentanyl at the 75 mg dose. Would not add any other Narcotics at this point. - Continue to monitor in the ICU for now. Follow bradycardia closely. Intractable nausea and vomiting: Could be related to withdrawal from narcotics versus benzodiazepines. It is unclear what the patient was taking at home. - GI has been consulted. Antiemetics as needed. - Low dose Ativan as needed. - Protonix. Sinus bradycardia: Asymptomatic. Continue to monitor on telemetry. Unclear if related to drug overdose Status post intubation/extubation for airway protection: Doing well on room air. Depression/anxiety: Resume Lexapro in a.m. Ativan as needed GI prophylaxis: PPI. Stool softener PRN constipation. DVT PPx: Heparin Debra Hall MD Oct 09, 2016 08:58
[2016-10-09] MEDS ORDERED: LORazepam 0.5 MG TAB PO PRN (09:00)
[2016-10-09] MEDS ORDERED: ESCITALOPRAM OXALATE 10 MG TAB PO SCH (09:00)
--- NOTE | 2016-10-09 09:32 | PD.CONS ---
HPI History of Present Illness This is a 46 year old year old female who went to ER for altered mental status. She is here visiting from [place], [place]. At arrival to ER she had GCS score of 5. Patient had seizure like activity during transport by EMS and came in as stroke alert. There is question of possible drug overdose. Patient is on trazodone at home per ER documentation. CT scan of the brain was unremarkable. CTA of head, neck, and MRI of brain were all unremarkable. Patient was intubated in ER and placed on full mechanical ventilation. She is now s/p extubation. She has been consistently bradycardic on monitor. GI was consulted for intractable nausea and vomiting, and patient history of gastric bypass 2004. States last EGD was 5 years ago, which showed gastric ulcers. Patient states she continues to have nausea and vomiting. Nurse reports patient has been dry heaving. No hematemesis. Having epigastric abdominal pain, constant. Reports normal bowel movements. When asked what medications she takes at home, patient states she doesn't feel like talking right now, and refused to tell me. 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 Past Surgical History Cholecystectomy Gastric Bypass Hysterectomy L4-5 fusion Back, knee, and neck surgeries (Mona Ortez) Coded Allergies: No Known Allergies (Unverified , 10/08/16) Medications Current Medications Medications (Trade) Dose Ordered Sig/Lani Route PRN Reason Start Time Stop Time Status Last Admin Dose Admin Lorazepam (Ativan Inj) 1 mg ONCE PRN IV PUSH Seizure 10/08/16 07:45 10/08/16 22:20 Pantoprazole Sodium (Protonix Inj) 40 mg DAILY IV 10/08/16 12:00 10/09/16 07:44 Heparin Sodium (Porcine) (Heparin Inj) 5,000 units Q12H SQ 10/08/16 13:00 10/09/16 04:10 Miscellaneous Information 1 [id number] XX 10/08/16 12:00 10/08/16 12:00 Chlorhexidine Gluconate (Chlorhexidine 2% Cloth) 3 pack Taper DAILY@04 TOP 10/09/16 04:00 10/05/17 03:59 10/09/16 04:00 Chlorhexidine Gluconate (Chlorhexidine 2% Cloth) 3 pack UNSCH PRN TOP HYGIENIC CARE 10/08/16 12:00 Senna/Docusate Sodium (Hilary-Colace) 1 tab BID PO 10/08/16 12:00 10/09/16 07:45 Magnesium Hydroxide (Milk Of Jovany Limarlee) 30 ml Q12H PRN PO MILD - MODERATE CONSTIPATION 10/08/16 12:00 Sennosides (Senokot) 17.2 mg Q12H PRN PO MODERATE - SEVERE CONSTIPATION 10/08/16 12:00 Bisacodyl (Dulcolax Supp) 10 mg DAILY PRN RECTAL SEVERE CONSITIPATION 10/08/16 12:00 Lactulose 30 ml 30 ml DAILY PRN PO SEVERE CONSITIPATION 10/08/16 12:00 Potassium Chloride 100 ml @ 50 mls/hr Q2H PRN IV For Potassium 2.8 - 3.2 mEq/L 10/08/16 12:00 Potassium Chloride (KCl 20 Meq Premix Inj) 100 ml @ 50 mls/hr Q2H PRN IV For Potassium 2.8 - 3.2 mEq/L 10/08/16 12:00 Potassium Bicarb/ Potassium Chloride 50 meq 50 meq UNSCH PRN PO For Potassium 3.3 - 3.5 mEq/L 10/08/16 12:00 Potassium Chloride 100 ml @ 25 mls/hr UNSCH PRN IV For Potassium 3.3 - 3.5 mEq/L 10/08/16 12:00 Potassium Chloride 100 ml @ 50 mls/hr Q2H PRN IV For Potassium 3.3 - 3.5 mEq/L 10/08/16 12:00 Magnesium Sulfate/ Sodium Chloride (Magnesium Sulfate Inj/NS Inj) 100 ml @ 50 mls/hr UNSCH PRN IV For Magnesium 0.9 - 1.1 mg/dL 10/08/16 12:00 Magnesium Oxide 800 mg 800 mg UNSCH PRN PO For Magnesium 1.2 - 1.6 mg/dL 10/08/16 12:00 Magnesium Sulfate/ Sodium Chloride (Magnesium Sulfate Inj/NS Inj) 100 ml @ 50 mls/hr UNSCH PRN IV For Magnesium 1.2 - 1.6 mg/dL 10/08/16 12:00 Potassium Phosphate 2000 mg 2,000 mg Q4H PRN PO For Phosphorus < 2.5 mg/dL 10/08/16 12:00 Sodium Phosphate/ Sodium Chloride (Sodium Phosphate Inj/NS 250 ml Inj) 250 ml @ 42 mls/hr UNSCH PRN IV For Phosphorus < 2.5 mg/dL 10/08/16 12:00 Potassium Phosphate 2000 mg 2,000 mg UNSCH PRN PO/TUBE SEE LABEL COMMENTS 10/08/16 12:00 Potassium Phosphate/Sodium Chloride (Potassium Phosphate Inj/NS 250 ml Inj) 260 ml @ 42 mls/hr UNSCH PRN IV SEE LABEL COMMENTS 10/08/16 12:00 Dextrose (D50w (Vial) Inj) 50 ml UNSCH PRN IV HYPOGLYCEMIA-SEE COMMENTS 10/08/16 12:00 Glucagon (Glucagon Inj) 1 mg UNSCH PRN OTHER HYPOGLYCEMIA-SEE COMMENTS 10/08/16 12:00 Insulin Human Regular 1 1 Q4H SQ 10/08/16 12:00 Dextrose/Sodium Chloride (D5W-NS 1000 ml Inj) 1,000 ml @ 84 mls/hr [id number] IV 10/08/16 12:00 10/08/16 23:55 Prednisone (Deltasone) 10 mg DAILY PO 10/09/16 09:00 10/09/16 07:45 Ondansetron HCl (Zofran Inj) 4 mg Q6HR PRN IV PUSH nausea vomiting 10/08/16 22:15 10/09/16 07:45 Escitalopram Oxalate (Lexapro) 10 mg DAILY PO 10/10/16 09:00 UNV Family History Noncontributory Social History Tobacco, denies current use. Reports history of 1 PPD x 20 years. ETOH, denies Illicit Drugs, denies (Mona Ortez) Review of Systems Constitutional: DENIES: Diaphoretic episodes, Fatigue, Fever, Weight gain, Weight loss, Chills, Dizziness, Change in appetite, Night Sweats Endocrine: DENIES: Polydipsia, Polyuria Eyes: DENIES: Blurred vision, Photosensitivity, Double Vision Ears, nose, mouth, throat: DENIES: Hearing loss, Vertigo, Oral lesions, Throat pain, Hoarseness Respiratory: DENIES: Cough, Wheezing, Hemoptysis, Sputum production, Shortness of breath Cardiovascular: DENIES: Chest pain, Palpitations, Syncope, Lower Extremity Edema, Orthopnea, Claudication Gastrointestinal: COMPLAINS OF: Abdominal pain, Nausea, Vomiting, DENIES: Black stools, Bloody stools, Constipation, Diarrhea, Difficulty Swallowing, Anorexia, Odynophagia, Swelling of Abdomen, Heartburn, Hematemesis Genitourinary: DENIES: Urinary frequency, Urinary incontinence, Urgency, Hematuria, Dysuria, Nocturia Musculoskeletal: DENIES: Joint pain, Muscle aches, Stiffness, Joint Swelling, Back pain, Neck pain Integumentary: DENIES: Abnormal pigmentation, Nail changes, Pruritus, Rash, Jaundice Hematologic/lymphatic: DENIES: Bruising, Lymphadenopathy Immunologic/allergic: DENIES: Eczema, Urticaria Neurologic: DENIES: Abnormal gait, Headache, Localized weakness, Paresthesias Psychiatric: DENIES: Anxiety, Confusion, Mood changes, Depression, Agitation, Suicidal Ideation (Mona Ortez) GI Exam Vitals I&O Vital Signs Date Time Temp Pulse Resp B/P Pulse Ox O2 Delivery O2 Flow Rate FiO2 10/09/16 07:55 97 10/09/16 06:00 48 10/09/16 04:00 79 10/09/16 04:00 79 34 96 10/09/16 02:00 47 10/09/16 00:00 97.6 41 19 101/67 95 10/09/16 00:00 41 10/08/16 23:00 42 10/08/16 23:00 42 31 126/78 98 10/08/16 20:00 98.2 61 42 103/69 99 10/08/16 20:00 98.2 61 42 103/69 99 10/08/16 20:00 61 10/08/16 18:30 40 39 97 10/08/16 18:00 47 32 115/68 96 10/08/16 18:00 43 10/08/16 17:30 46 39 98 10/08/16 17:00 50 25 132/68 97 10/08/16 16:30 50 44 97 10/08/16 16:00 43 10/08/16 16:00 40 28 110/68 96 10/08/16 15:30 45 45 95 10/08/16 15:01 57 50 119/84 95 10/08/16 15:00 54 46 97 10/08/16 15:00 98.0 43 16 115/68 99 10/08/16 15:00 98.0 48 16 142/78 98 10/08/16 14:45 99 Room Air 10/08/16 14:30 49 43 98 10/08/16 14:01 46 31 142/69 100 10/08/16 14:00 45 32 100 10/08/16 14:00 41 10/08/16 13:30 46 32 100 10/08/16 13:21 40 10/08/16 13:20 49 10/08/16 13:01 53 34 130/75 100 10/08/16 13:00 98.0 42 16 115/68 99 10/08/16 13:00 61 37 82 10/08/16 12:30 37 31 100 10/08/16 12:00 41 10/08/16 12:00 98.0 49 16 130/75 99 10/08/16 11:42 98.0 48 16 145/90 98 10/08/16 11:00 100 100 10/08/16 10:57 55 16 148/98 100 Ventilator 2 40 10/08/16 10:44 100 Ventilator 40 10/08/16 10:40 60 16 142/89 100 Ventilator 100 10/08/16 10:15 78 16 135/80 100 Ventilator 100 10/08/16 10:00 35 16 137/84 100 Ventilator 100 10/08/16 09:15 99 I/O 10/08/16 10/08/16 10/08/16 10/09/16 10/09/16 10/09/16 07:00 15:00 23:00 07:00 15:00 23:00 Intake Total 1156 ml 240 ml Output Total 1500 ml 400 ml Balance -344 ml -160 ml Intake Oral 240 ml 0 ml IV Total 916 ml 240 ml Output Urine Total 1500 ml 400 ml # Voids 0 Imaging Last Impressions Neck CTA 10/08/16712 Signed Impressions: Service Date/Time: Saturday, October 08, 2016 07:27 - CONCLUSION: Normal examination. Elida Roman MD Head CTA 10/08/16712 Signed Impressions: Service Date/Time: Saturday, October 08, 2016 07:27 - CONCLUSION: Unremarkable study. Elida Roman MD Head CT 10/08/16 0000 Signed Impressions: Service Date/Time: Saturday, October 08, 2016 07:17 - CONCLUSION: Unremarkable study. Elida Roman MD Chest X-Ray 10/08/16 0000 Signed Impressions: Service Date/Time: Saturday, October 08, 2016 08:30 - CONCLUSION: Slight prominence of the left hilar shadow probably technical and attention to this area on follow up chest x-rays is suggested. 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 Elida Roman MD Laboratory Test 10/08/16 10/08/16 10/08/16 10/09/16 10:31 12:20 14:00 03:34 Blood Gas Puncture Site RT RADIAL Blood Gas Patient Temperature 98.6 Blood Gas HCO3 25 mmol/L Blood Gas Base Excess 1.3 mmol/L Blood Gas Oxygen Saturation 96 % Arterial Blood pH 7.43 Arterial Blood Partial 39 mmHg Pressure CO2 Arterial Blood Partial 337 mmHG Pressure O2 Arterial Blood Oxygen Content 18.1 Vol % Arterial Blood 2.7 % Carboxyhemoglobin Arterial Blood Methemoglobin 0.8 % Blood Gas Hemoglobin 12.7 G/DL Oxygen Delivery Device VENTILATOR Blood Gas Ventilator Setting 500/16/+5 Blood Gas Inspired Oxygen 100 % White Blood Count 6.8 TH/MM3 Red Blood Count 4.98 MIL/MM3 Hemoglobin 13.9 GM/DL Hematocrit 41.6 % Mean Corpuscular Volume 83.7 FL Mean Corpuscular Hemoglobin 27.9 PG Mean Corpuscular Hemoglobin 33.3 % Concent Red Cell Distribution Width 16.5 % Platelet Count 191 TH/MM3 Mean Platelet Volume 7.4 FL Neutrophils (%) (Auto) 85.5 % Lymphocytes (%) (Auto) 10.0 % Monocytes (%) (Auto) 3.7 % Eosinophils (%) (Auto) 0.4 % Basophils (%) (Auto) 0.4 % Neutrophils # (Auto) 5.8 TH/MM3 Lymphocytes # (Auto) 0.7 TH/MM3 Monocytes # (Auto) 0.3 TH/MM3 Eosinophils # (Auto) 0.0 TH/MM3 Basophils # (Auto) 0.0 TH/MM3 CBC Comment DIFF FINAL Differential Comment Sodium Level 139 MEQ/L 144 MEQ/L Potassium Level 3.7 MEQ/L 3.6 MEQ/L Chloride Level 108 MEQ/L 108 MEQ/L Carbon Dioxide Level 24.7 MEQ/L 27.9 MEQ/L Anion Gap 6 MEQ/L 8 MEQ/L Blood Urea Nitrogen 10 MG/DL 9 MG/DL Creatinine 0.51 MG/DL 0.60 MG/DL Estimat Glomerular Filtration 129 ML/MIN 107 ML/MIN Rate Random Glucose 95 MG/DL 90 MG/DL Calcium Level 8.3 MG/DL 8.5 MG/DL Phosphorus Level 2.5 MG/DL 2.7 MG/DL Magnesium Level 1.9 MG/DL 1.8 MG/DL Total Bilirubin 0.5 MG/DL 0.9 MG/DL Aspartate Amino Transf 21 U/L 16 U/L (AST/SGOT) Alanine Aminotransferase 17 U/L 20 U/L (ALT/SGPT) Alkaline Phosphatase 83 U/L 82 U/L Total Creatine Kinase 82 U/L Troponin I LESS THAN 0.02 NG/ML Total Protein 5.6 GM/DL 5.7 GM/DL Albumin 3.2 GM/DL 3.0 GM/DL Nasal Screen MRSA (PCR) MRSA NOT DETECTED Date/Time Procedure Status Source Growth 10/08/16 08:10 Aerobic Blood Culture Received Blood Peripheral Pending 10/08/16 08:10 Anaerobic Blood Culture Received Blood Peripheral Pending Physical Examination HEENT: PERRLA, dilated pupils 6 mm NECK: Neck is supple, no JVD, no lymphadenopathy. CHEST: CTA CARDIAC: Bradycardia ABDOMEN: Soft, nondistended, tenderness at epigastric abdomen; no hepatosplenomegaly; bowel sounds are present in all four quadrants. EXTREMITIES: No clubbing, cyanosis, or edema. SKIN: Normal; no rash; no jaundice. 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 (Mona Ortez) Assessment and Plan Plan ASSESSMENT Nausea and vomiting, no hematemesis. Patient with history of gastric bypass and gastric ulcers. Last EGD 5 years ago, per patient. Having epigastric abdominal pain, very tender on palpation. Normal BM. WBC normal. T. Bili normal, liver enzymes normal. Drug overdose? Toxicology positive for benzodiazepines, negative for opiates, barbiturates, amphetamines, cocaine, and cannabinoids. Had altered mental status on admission with GCS of 5. On Trazodone at home per ER documentation. Patient refused to discuss with me what medication she currently takes at home. Neck CTA, Head CTA unremarkable. Head CT unremarkable. Brain MRI unremarkable. Bradycardia, EKG showed sinus bradycardia, per attending PLAN -US abdomen -EGD, obtain consents -NPO -Anti-emetics -Symptomatic management -Continue Protonix -Monitor labs -Further recommendations to follow based on results of above. Patient seen and examined by Dr. Burns and myself and this note is written on her behalf. (Mona Ortez) Physician Comments seen, examined agree with above NGT egd in am if agrees if the above negative ct abdomen/pelvis once she can drink contrast (Kristine Burns MD) Mona Ortez Oct 09, 2016 09:32 Kristine Burns MD Oct 09, 2016 14:33
[2016-10-09] MEDS: DEXT 5%-NACL 0.9% 1000 ML INJ 1,000 ML IV SCH ×2 (14:19→23:45)
--- NOTE | 2016-10-09 15:30 | RADRPT ---
EXAM DATE/TIME: 10/09/2016 14:46 [facility] COMPARISON: No previous studies available for comparison. INDICATIONS : Abdominal pain. MEDICAL HISTORY : Hypothyroidism. Glasses. Abdominal pain. Nausea. Vomiting. Chronic back pain. Dystonia. SURGICAL HISTORY : Cholecystectomy. Hysterectomy. Gastric bypass. Right knee surgery. Back surgery. Neck surgery. ENCOUNTER: Initial ACUITY: 2 days PAIN SCORE: 5/10 LOCATION: Bilateral upper quadrant MEASUREMENTS: LIVER: 17.0 cm length COMMON DUCT: 8 mm RIGHT KIDNEY: 11.0 x 5.2 x 4.3 cm LEFT KIDNEY: 10.7 x 5.4 x 5.4 cm SPLEEN: 11.5 cm length AORTA: 2.1cm maximal FINDINGS: LIVER: Normal echotexture without focal lesion or ductal dilatation. Hepatopedal flow. COMMON DUCT: No intraluminal mass or stone visualized. GALLBLADDER: Surgically absent. PANCREAS: The visualized portions are within normal limits. RIGHT KIDNEY: No hydronephrosis, stone or mass. LEFT KIDNEY: No hydronephrosis, stone or mass. SPLEEN: No focal lesion. AORTA: Non aneurysmal. IVC: Within normal limits. CONCLUSION: No acute abnormalities. Status post cholecystectomy. Arnaud Lisa MD on October 09, 2016 at 15:26 Board Certified Radiologist. This report was verified electronically.
[2016-10-09] MEDS ORDERED: LORazepam 2 MG/ML VIAL IM ONE (18:45)
[2016-10-09] MEDS: LORazepam 2 MG/ML VIAL IV PRN (20:48)
[2016-10-09] MEDS: MORPHINE SULFATE 4 MG/ML INJ IV PRN (22:19)
[2016-10-10] VITALS (17 sets, daily range): BP systolic 102–120; BP diastolic 65–81; PULSE 71–83; RESP 18–60; TEMP 96.3–98.8; O2SAT 97–100
[2016-10-10] MEDS: LORazepam 2 MG/ML VIAL IV PRN ×3 (01:12→19:26)
[2016-10-10] MEDS: HEPARIN SODIUM - SQ 10,000 UNITS/ML VIAL SQ SCH ×2 (01:13→13:00)
[2016-10-10] MEDS: CHLORHEXIDINE GLUCONATE 2 % 1 PACK (2 CLOTHS) TOP SCH (02:09)
[2016-10-10] MEDS: MORPHINE SULFATE 4 MG/ML INJ IV PRN ×5 (02:16→21:47)
[2016-10-10] MEDS: INSULIN NovoLIN REGULAR SUPPLEMENTAL SCALE SQ SCH ×5 (04:00→20:00)
[2016-10-10] MEDS: RESP: ALBUTEROL 2.5 MG/IPRATROPIUM 0.5 MG NEB (SCH) INH ×4 (04:58→21:16)
--- NOTE | 2016-10-10 06:02 | MG ---
cc: [facility] Lab No: Date: 10/09/2016 Age: 46 Sex: F Race: DATE OF [address] Fuentes MEDICAL HISTORY 1. Hypothyroidism. 2. Chronic back pain. 3. Tremors, twitching. 4. Depression. 5. Alcohol and tobacco use. MEDICATIONS 1. Potassium chloride. 2. Prednisone. 3. Morphine. 4. Zofran. 5. Heparin. 6. Protonix. 7. Fentanyl patch. 8. Morphine. EEG DESCRIPTION The background activity is 10-11 Hz alpha, located posteriorly, superimposed by excess beta activity. There is excessive muscle eye blink artifact during the recording. Hyperventilation was not performed. Photic stimulation was done; it is accompanied by twitching but not of an epileptogenic nature. There were no electrographic seizures or epileptiform discharges noted. INTERPRETATION This is an awake EEG. Excess beta activity may be related to medications like benzos or barbiturates. The absence of electrographic seizures or epileptiform discharges does not rule out the diagnosis of epilepsy. Clinical correlation is recommended. MD RADHA Jones/KRISTAL /12:15 AM /5:59 AM MTDCherie
--- NOTE | 2016-10-10 08:46 | EKG ---
Date Performed: 10/08/2016 Time Performed: 07:43:54 PTAGE: 46 years EKG: SINUS BRADYCARDIA LEFT ANTERIOR FASCICULAR BLOCK MODERATE VOLTAGE CRITERIA FOR LVH, CONSIDE R NORMAL VARIANT Consider LATERAL MYOCARDIAL INFARCTION - age indeterminate Biphasic T-waves in the a nterior leads Consider anterior ischemia ABNORMAL ECG NO PREVIOUS TRACING DOCTOR: Mal Breen Interpretating Date/Time 10/10/2016 08:44:21
--- NOTE | 2016-10-10 08:47 | EKG ---
Date Performed: 10/08/2016 Time Performed: 10:06:10 PTAGE: 46 years EKG: SINUS BRADYCARDIA MARKED LEFT AXIS DEVIATION MODERATE INTRAVENTRICULAR CONDUCTION DELAY MOD ERATE VOLTAGE CRITERIA FOR LVH, CONSIDER NORMAL VARIANT MODERATE T-WAVE ABNORMALITY, CONSIDER ANTERIO R ISCHEMIA Consider lateral myocardial infarction - age indeterminate Prolonged QTc interval ABNORMAL ECG PREVIOUS TRACING : 10/08/2016 07.43 DOCTOR: Mal Breen Interpretating Date/Time 10/10/2016 08:45:43
--- NOTE | 2016-10-10 08:48 | EKG ---
Date Performed: 10/08/2016 Time Performed: 15:18:40 PTAGE: 46 years EKG: SINUS BRADYCARDIA LEFT ANTERIOR FASCICULAR BLOCK MODERATE VOLTAGE CRITERIA FOR LVH, CONSIDE R NORMAL VARIANT PROBABLE LATERAL MYOCARDIAL INFARCTION , PROBABLY OLD MODERATE T-WAVE ABNORMALITY, C ONSIDER ANTERIOR ISCHEMIA Prolonged QTc interval ABNORMAL ECG PREVIOUS TRACING : 10/08/2016 10.06 DOCTOR: Mal Breen Interpretating Date/Time 10/10/2016 08:46:52
[2016-10-10] MEDS: predniSONE 10 MG TAB PO SCH (09:42)
[2016-10-10] MEDS: DOCUSATE SODIUM 50 MG/SENNA 8.6 MG TAB PO SCH ×2 (09:42→21:00)
[2016-10-10] MEDS: PANTOPRAZOLE SODIUM 40 MG VIAL IV SCH (09:42)
[2016-10-10] MEDS: ESCITALOPRAM OXALATE 10 MG TAB PO SCH (09:42)
--- NOTE | 2016-10-10 09:46 | HHI.PR ---
Subjective Remarks NGT placed per GI yesterday. Upon entering the room, the patient was found sleeping with a tablet on her lap. Once awake she complained of midepigastric pain. Minimal drainage from NGT. EGD planned today per GI. HR now in the 80's Objective Vitals Vital Signs Date Time Temp Pulse Resp B/P Pulse Ox O2 Delivery O2 Flow Rate FiO2 10/10/16 08:55 99 21 10/10/16 06:27 22 10/10/16 06:00 76 10/10/16 04:00 71 10/10/16 04:00 98.2 71 42 103/72 100 10/10/16 02:00 73 10/10/16 00:00 81 10/10/16 00:00 97.1 81 52 115/81 100 10/09/16 23:00 105 10/09/16 22:00 119 10/09/16 21:12 100 Nasal Cannula 1.50 10/09/16 20:00 114 10/09/16 20:00 98.6 114 32 112/82 100 10/09/16 18:00 46 10/09/16 16:00 98.0 124 24 126/72 96 10/09/16 16:00 46 10/09/16 15:00 42 10/09/16 15:00 42 10/09/16 14:00 46 10/09/16 12:00 98.0 43 24 150/83 96 10/09/16 12:00 43 10/09/16 10:00 43 I/O 10/09/16 10/09/16 10/09/16 10/10/16 10/10/16 10/10/16 07:00 15:00 23:00 07:00 15:00 23:00 Intake Total 240 ml 1176 ml 990 ml 614 ml Output Total 400 ml 1000 ml 1000 ml 750 ml Balance -160 ml 176 ml -10 ml -136 ml Intake Oral 0 ml 420 ml 360 ml 0 ml IV Total 240 ml 756 ml 630 ml 614 ml Output Urine Total 400 ml 1000 ml 1000 ml 750 ml Result Diagram: 10/08/16 1220 10/09/16 0334 Objective Remarks GENERAL: Patient appearing older than stated age. CARDIOVASCULAR: Heart rate in the 80s and regular rhythm without murmurs, gallops, or rubs. RESPIRATORY: Good respiratory efforts. Breath sounds equal and clear to auscultation bilaterally. GASTROINTESTINAL: Abdomen soft, non-distended, reports tenderness to palpation in the midepigastric region. Hypoactive bowel sounds MUSCULOSKELETAL: Extremities without cyanosis, or edema. NEURO: Alert & Oriented. Moves all ext x4. Normal speech. Falls asleep mid conversation. PSYCH: Irritable. A/P Assessment and Plan 46-year-old female initially brought in as a stroke alert, intubated for airway protection. Probable drug overdose.?Fentanyl. Patient refused to elaborate on what she took at home. She has been extubated and is stable on room air. However continues to complain of intractable nausea and dry heaving. She has chronic neck pain and also complains of abdominal pain requesting narcotics. Toxic metabolic encephalopathy: Likely secondary to drug overdose,? Fentanyl - Resolved. Patient reports her pain management doctor discontinued all of her narcotics except for fentanyl 75 g patch. She was reportedly started on baclofen and Zanaflex for chronic neck pain. NPO. Keep Morphine 2 mg IV PRN. Would not escalate as there is no other objective evidence for severe pain. Intractable nausea and vomiting: Could be related to withdrawal from narcotics versus benzodiazepines. It is unclear what the patient was taking at home. - GI following. NGT placed. Plan for endoscopy today. Antiemetics as needed. - Low dose Ativan as needed. - Protonix. - IVF Chronic pain: See above. Patient having issues with medications change by her pain management doctor. She was reportedly weaned off Narcotics. - PT is NPO for now. Keep IV Morphine as needed. Plan to wean off when she is no longer NPO. Sinus bradycardia: This was likely related to overdose from unknown drugs. Her heart rate has completely recovered she is now in sinus rhythm. Continue to monitor on telemetry. Status post intubation/extubation for airway protection: Doing well on room air. Depression/anxiety: Resume Lexapro. - Psychiatry consulted Ativan as needed GI prophylaxis: PPI. Stool softener PRN constipation. DVT PPx: Heparin Discharge Planning Stable for transfer to floor. Debra Hall MD Oct 10, 2016 09:46
[2016-10-10] MEDS: DEXT 5%-NACL 0.9% 1000 ML INJ 1,000 ML IV SCH ×2 (11:40→23:35)
--- NOTE | 2016-10-10 13:25 | PD.PSY.CON ---
Provisional Diagnosis Admission Date Oct 08, 2016 at 10:05 Regan I. Adjustment disorder with depressed mood, opiate dependence, history of anxiety and depression Regan II. Deferred Regan III. Hypothyroidism, cervical dystonia Regan IV. 1 previous suicide attempt in 2014 Regan V. 55 History of Present Illness Service Psychiatry Consult Requested By Primary Care Physician Non-Staff HPI The patient is a 46-year-old woman, domiciled in [facility] with her family, unemployed, supported by , with psychiatric history of anxiety and depression, 1 previous psychiatric hospitalization, one previous suicidal attempts, she has acted outpatient psychiatric care in [place], she is on Lexapro 10 mg and trazodone 200 mg at bedtime, medical history hypothyroidism, lower back pain, cervical dystonia, who came to ER for altered mental status. She is here visiting [place] for medication. At arrival to ER she had GCS score of 5. Patient had seizure like activity during transport by EMS and came in as stroke alert. There is question of possible drug overdose. Initial CT scan of the brain was unremarkable. CTA of head, neck, and MRI of brain were all unremarkable. Patient was intubated in ER and placed on full mechanical ventilation. She is now s/p extubation. Seems to be stable. On psychiatric evaluation patient is calm, cooperative, but reported stress due to isolation in the ICU and naso gastric tube. Patient says that she was enjoying her medication when she is started having nausea, vomiting and dizziness and after mental status. Patient says that she has been treated with high doses of opiates for pain for many years, but recently she has switch to a new medication , tizanidine, without being tapered down. She says that she took several pills of tizanidine to control her pain and because she was confused, but her intention were no suicidal. Patient stated that she has too many reasons to live, she was actually medication with her family having a fun time. Patient has suffered of depression in the past, but has been stable in Lexapro and trazodone. At the moment of this evaluation patient denies depressive symptoms , she denies anhedonia, she denies hopelessness, she denies helplessness, she denies suicidal and homicidal ideation, she denies visual and auditory hallucinations. Patient is fully oriented 3, no attention deficit, no fluctuation of consciousness, no gross cognitive impairment person. The patient denies the use of drugs and alcohol. Patient recognizes that for several years she has been abusing opiates without thinking in the negative consequences. I spoke with her for collateral information, Frandy Augustine , , who clarifies that he does not think that the patient had any suicidal intention in her overdose. He says that she was most probably taking more pills than prescribed due to her pain and due to the fact that she was in opiates a couple days ago, but she was switched. Patient he also clarifies that the patient has a show any symptomatology of depression, psychosis or aniyah in the last days. She has been compliant with medications and follow-up with psychiatry in [place]. Review of Systems Constitutional: COMPLAINS OF: Change in appetite, DENIES: Diaphoretic episodes , Fatigue, Fever, Weight gain, Weight loss, Chills, Dizziness, Night Sweats Endocrine: DENIES: Abnorml menstrual pattern, Heat/cold intolerance, Polydipsia , Polyuria, Polyphagia Ears, nose, mouth, throat: DENIES: Tinnitus, Hearing loss, Vertigo, Nasal discharge, Oral lesions, Throat pain, Hoarseness, Ear Pain, Running Nose, Epistaxis, Sinus Pain, Toothache, Odynophagia Respiratory: DENIES: Apneas, Cough, Snoring, Wheezing, Hemoptysis, Sputum production, Shortness of breath Cardiovascular: DENIES: Chest pain, Palpitations, Syncope, Dyspnea on Exertion , PND, Lower Extremity Edema, Orthopnea, Claudication Gastrointestinal: COMPLAINS OF: Nausea, Vomiting Genitourinary: DENIES: Abnormal vaginal bleeding, Dysmenorrhea, Dyspareunia, Sexual dysfunction, Urinary frequency, Urinary incontinence, Urgency, Hematuria , Dysuria, Nocturia, Vaginal discharge Musculoskeletal: COMPLAINS OF: Joint pain, Muscle aches, DENIES: Stiffness, Joint Swelling, Back pain, Neck pain Integumentary: DENIES: Abnormal pigmentation, Pruritus, Rash, Nail changes, Breast masses, Breast skin changes, Nipple discharge Hematologic/lymphatic: DENIES: Bruising, Lymphadenopathy Immunologic/allergic: DENIES: Eczema, Urticaria Neurologic: DENIES: Abnormal gait, Headache, Localized weakness, Paresthesias, Seizures, Speech Problems, Tremor, Poor Balance Psychiatric: DENIES: Anxiety, Confusion, Mood changes, Depression, Hallucinations, Agitation, Suicidal Ideation, Homicidal Ideation, Delusions Past Family Social History Coded Allergies: No Known Allergies (Unverified , 10/08/16) Reported Medications Naproxen 375 Mg [id number] Mg PO BID PRN (PAIN SCALE 1 TO 10) #60 TAB Ref 0 10/08/16 Levothyroxine 100 Mcg [id number] Mcg PO DAILY #30 TAB Ref 0 10/08/16 Escitalopram 10 Mg Tab10 Mg PO DAILY #30 TAB Ref 0 10/08/16 Baclofen 10 Mg Tab10 Mg PO Q8HR PRN (MUSCLE SPASM) Ref 0 10/08/16 Prednisone 10 Mg Tab10 Mg PO DAILY Ref 0 10/08/16 Tizanidine 4 Mg Cap4 Mg PO TID Ref 0 10/08/16 Trazodone 100 Mg [id number] Mg PO HS #90 TAB Ref 0 10/08/16 Current Medications Medications (Trade) Dose Ordered Sig/Alni Route Start Time Stop Time Status Last Admin (Ativan Inj) 1 mg ONCE PRN IV PUSH 10/08/16 07:45 10/08/16 22:20 (Protonix Inj) 40 mg DAILY IV 10/08/16 12:00 10/10/16 09:42 (Heparin Inj) 5,000 units Q12H SQ 10/08/16 13:00 10/10/16 01:13 Miscellaneous Information 1 [id number] XX 10/08/16 12:00 10/08/16 12:00 (Chlorhexidine 2% Cloth) 3 pack Taper DAILY@04 TOP 10/09/16 04:00 10/05/17 03:59 10/10/16 02:09 (Chlorhexidine 2% Cloth) 3 pack UNSCH PRN TOP 10/08/16 12:00 (Hilary-Colace) 1 tab BID PO 10/08/16 12:00 10/10/16 09:42 (Milk Of Magnesia Liq) 30 ml Q12H PRN PO 10/08/16 12:00 (Senokot) 17.2 mg Q12H PRN PO 10/08/16 12:00 (Dulcolax Supp) 10 mg DAILY PRN RECTAL 10/08/16 12:00 Lactulose 30 ml 30 ml DAILY PRN PO 10/08/16 12:00 Potassium Chloride 100 ml @ 50 mls/hr Q2H PRN IV 10/08/16 12:00 (KCl 20 Meq Premix Inj) 100 ml @ 50 mls/hr Q2H PRN IV 10/08/16 12:00 Potassium Bicarb/ Potassium Chloride 50 meq 50 meq UNSCH PRN PO 10/08/16 12:00 Potassium Chloride 100 ml @ 25 mls/hr UNSCH PRN IV 10/08/16 12:00 Potassium Chloride 100 ml @ 50 mls/hr Q2H PRN IV 10/08/16 12:00 (Magnesium Sulfate Inj/NS Inj) 100 ml @ 50 mls/hr UNSCH PRN IV 10/08/16 12:00 Magnesium Oxide 800 mg 800 mg UNSCH PRN PO 10/08/16 12:00 (Magnesium Sulfate Inj/NS Inj) 100 ml @ 50 mls/hr UNSCH PRN IV 10/08/16 12:00 Potassium Phosphate 2000 mg 2,000 mg Q4H PRN PO 10/08/16 12:00 (Sodium Phosphate Inj/NS 250 ml Inj) 250 ml @ 42 mls/hr UNSCH PRN IV 10/08/16 12:00 Potassium Phosphate 2000 mg 2,000 mg UNSCH PRN PO/TUBE 10/08/16 12:00 (Potassium Phosphate Inj/NS 250 ml Inj) 260 ml @ 42 mls/hr UNSCH PRN IV 10/08/16 12:00 (D50w (Vial) Inj) 50 ml UNSCH PRN IV 10/08/16 12:00 (Glucagon Inj) 1 mg UNSCH PRN OTHER 10/08/16 12:00 Insulin Human Regular 1 1 Q4H SQ 10/08/16 12:00 10/09/16 20:00 (D5W-NS 1000 ml Inj) 1,000 ml @ 84 mls/hr [id number] IV 10/08/16 12:00 10/10/16 11:40 (Deltasone) 10 mg DAILY PO 10/09/16 09:00 10/10/16 09:42 (Zofran Inj) 4 mg Q6HR PRN IV PUSH 10/08/16 22:15 10/09/16 11:56 (Lexapro) 10 mg DAILY PO 10/10/16 09:00 10/10/16 09:42 (Ativan Inj) 1 mg Q4H PRN IV 10/09/16 18:45 10/10/16 01:12 (Morphine Inj) 2 mg Q4H PRN IV 10/09/16 18:45 10/10/16 10:33 Family History Patient denies family psychiatric history Social History Patient was born and raised in [place], she lives in [facility] with her family, just unemployed, supported by , her highest level of education is a college degree Patient's Strengths (min. 2) Family support Physical Exam Patient seems to be hypoactive, psychomotor retarded, distant, but no tremors, no sweating, no active withdrawal, no EPS present Vital Signs Vital Signs Date Time Temp Pulse Resp B/P Pulse Ox O2 Delivery O2 Flow Rate FiO2 10/10/16 12:00 79 56 105/71 98 10/10/16 11:30 98.8 10/10/16 08:55 21 10/09/16 21:12 Nasal Cannula 1.50 I/O 10/09/16 10/09/16 10/10/16 08:00 16:00 00:00 Intake Total 240 ml 1176 ml 990 ml Output Total 400 ml 1000 ml 1000 ml Balance -160 ml 176 ml -10 ml Lab Results Laboratory Test 10/08/16 10/08/16 10/08/16 10/09/16 10:31 12:20 14:00 03:34 Blood Gas Puncture Site RT RADIAL Blood Gas Patient Temperature 98.6 Blood Gas HCO3 25 mmol/L Blood Gas Base Excess 1.3 mmol/L Blood Gas Oxygen Saturation 96 % Arterial Blood pH 7.43 Arterial Blood Partial 39 mmHg Pressure CO2 Arterial Blood Partial 337 mmHG Pressure O2 Arterial Blood Oxygen Content 18.1 Vol % Arterial Blood 2.7 % Carboxyhemoglobin Arterial Blood Methemoglobin 0.8 % Blood Gas Hemoglobin 12.7 G/DL Oxygen Delivery Device VENTILATOR Blood Gas Ventilator Setting 500/16/+5 Blood Gas Inspired Oxygen 100 % White Blood Count 6.8 TH/MM3 Red Blood Count 4.98 MIL/MM3 Hemoglobin 13.9 GM/DL Hematocrit 41.6 % Mean Corpuscular Volume 83.7 FL Mean Corpuscular Hemoglobin 27.9 PG Mean Corpuscular Hemoglobin 33.3 % Concent Red Cell Distribution Width 16.5 % Platelet Count 191 TH/MM3 Mean Platelet Volume 7.4 FL Neutrophils (%) (Auto) 85.5 % Lymphocytes (%) (Auto) 10.0 % Monocytes (%) (Auto) 3.7 % Eosinophils (%) (Auto) 0.4 % Basophils (%) (Auto) 0.4 % Neutrophils # (Auto) 5.8 TH/MM3 Lymphocytes # (Auto) 0.7 TH/MM3 Monocytes # (Auto) 0.3 TH/MM3 Eosinophils # (Auto) 0.0 TH/MM3 Basophils # (Auto) 0.0 TH/MM3 CBC Comment DIFF FINAL Differential Comment Sodium Level 139 MEQ/L 144 MEQ/L Potassium Level 3.7 MEQ/L 3.6 MEQ/L Chloride Level 108 MEQ/L 108 MEQ/L Carbon Dioxide Level 24.7 MEQ/L 27.9 MEQ/L Anion Gap 6 MEQ/L 8 MEQ/L Blood Urea Nitrogen 10 MG/DL 9 MG/DL Creatinine 0.51 MG/DL 0.60 MG/DL Estimat Glomerular Filtration 129 ML/MIN 107 ML/MIN Rate Random Glucose 95 MG/DL 90 MG/DL Calcium Level 8.3 MG/DL 8.5 MG/DL Phosphorus Level 2.5 MG/DL 2.7 MG/DL Magnesium Level 1.9 MG/DL 1.8 MG/DL Total Bilirubin 0.5 MG/DL 0.9 MG/DL Aspartate Amino Transf 21 U/L 16 U/L (AST/SGOT) Alanine Aminotransferase 17 U/L 20 U/L (ALT/SGPT) Alkaline Phosphatase 83 U/L 82 U/L Total Creatine Kinase 82 U/L Troponin I LESS THAN 0.02 NG/ML Total Protein 5.6 GM/DL 5.7 GM/DL Albumin 3.2 GM/DL 3.0 GM/DL Nasal Screen MRSA (PCR) MRSA NOT DETECTED Mental Status Examination Appearance woman, NG tube in place, age appearing, calm, cooperative Speech: Unremarkable Orientation: x3 Memory: Unremarkable Thought Process: Logical Thought Content: Unremarkable Language Fluent and spontaneous Fund of Knowledge Adequate for her level of education Hallucination Type: None Attention and Concentration: Good Suicidal Ideation: No Homicidal Ideation: No Judgment: WNL Mood: Appropriate Motor Activity: Normal gait Assessment & Plan Problem List: (1) Adjustment disorder with depressed mood Assessment & Plan: On psychiatric evaluation today the patient does not show any evidence of acute, significant or concerning symptomatology of depression, anxiety, aniyah or psychosis. She denies current suicidal and homicidal ideation , she denies visual and auditory hallucinations. Recent overdose with muscle relaxants was not with suicidal intentions. Patient admits being abusing opiates for her pain in the last months and her primary care doctor recently switched to a new medication for pain. She admits that she was craving opiates and she was also in a lot of pain and she took more medications than prescribed trying to supply her opiates effects and treat her pain. Her , contacted by phone, confirms the patient did not try to commit suicide. She has history of depression, but she has been controlled with Lexapro 10 mg and trazodone 200 mg at bedtime. Patient has multiple identifiable protective factors and she is future and goal oriented. She does not meet criteria for psychiatric admission at this moment. Can continue current psychotropics. Extensive support, motivation psycho education provided. Consult appreciated. ICD Code: F43.21 Assessment & Plan Estimated LOS: days Jose Alonzo MD Oct 10, 2016 13:25
[2016-10-10] MEDS: ONDANSETRON HCL 4 MG/2 ML VIAL IV PUSH PRN (19:27)
[2016-10-11] VITALS (8 sets, daily range): BP systolic 96–164; BP diastolic 56–96; PULSE 59–87; RESP 18–19; TEMP 96.9–99.4; O2SAT 94–100
[2016-10-11] MEDS: MORPHINE SULFATE 4 MG/ML INJ IV PRN ×5 (00:42→21:24)
[2016-10-11] MEDS: LORazepam 2 MG/ML VIAL IV PRN ×5 (00:48→19:45)
[2016-10-11] MEDS: RESP: ALBUTEROL 2.5 MG/IPRATROPIUM 0.5 MG NEB (SCH) INH ×4 (04:00→22:00)
[2016-10-11] MEDS: CHLORHEXIDINE GLUCONATE 2 % 1 PACK (2 CLOTHS) TOP SCH (04:00)
[2016-10-11] MEDS: INSULIN NovoLIN REGULAR SUPPLEMENTAL SCALE SQ SCH ×6 (04:00→20:00)
[2016-10-11 07:46] LABS: HEMATOCRIT 21.9 % (35.0-46.0); MEAN CELL VOLUME 83.4 FL (80.0-100.0); MEAN CORPUSCULAR HEMOGLOBIN 28.1 PG (27.0-34.0); MEAN CORPUSCULAR HGB CONC 33.7 % (32.0-36.0); PLATELET COUNT 175 TH/MM3 (150-450); RED BLOOD COUNT 2.63 MIL/MM3 (4.00-5.30); RED CELL DISTRIBUTION WIDTH 16.5 % (11.6-17.2); REVIEW FLAG FINAL; WHITE BLOOD COUNT 8.1 TH/MM3 (4.0-11.0)
[2016-10-11 08:14] LABS: BICARBONATE 27.4 MEQ/L (21.0-32.0); POTASSIUM 3.4 MEQ/L (3.5-5.1)
[2016-10-11] MEDS: predniSONE 10 MG TAB PO SCH (08:43)
[2016-10-11] MEDS: ESCITALOPRAM OXALATE 10 MG TAB PO SCH (08:43)
[2016-10-11] MEDS: DOCUSATE SODIUM 50 MG/SENNA 8.6 MG TAB PO SCH ×2 (08:43→19:44)
[2016-10-11] MEDS: PANTOPRAZOLE SODIUM 40 MG VIAL IV SCH ×2 (08:43→19:44)
--- NOTE | 2016-10-11 09:53 | HHI.PR ---
Objective Vitals Vital Signs Date Time Temp Pulse Resp B/P Pulse Ox O2 Delivery O2 Flow Rate FiO2 10/11/16 08:20 113/63 10/11/16 08:00 98.8 66 18 96/56 97 10/11/16 00:00 96.9 65 19 111/69 96 10/10/16 22:33 98 10/10/16 20:00 96.3 73 18 117/65 97 10/10/16 16:00 97.3 75 20 111/66 98 10/10/16 12:00 79 56 105/71 98 10/10/16 11:30 98.8 79 42 108/69 98 10/10/16 11:00 81 51 111/67 98 10/10/16 10:30 81 60 114/73 99 10/10/16 10:00 80 55 113/70 98 I/O 10/10/16 10/10/16 10/10/16 10/11/16 10/11/16 10/11/16 07:00 15:00 23:00 07:00 15:00 23:00 Intake Total 614 ml 760 ml 307 ml 764 ml Output Total 750 ml 600 ml 700 ml 400 ml Balance -136 ml 160 ml -393 ml 364 ml Intake Oral 0 ml 760 ml 120 ml 120 ml IV Total 614 ml 187 ml 644 ml Output Urine Total 750 ml 600 ml 700 ml 400 ml # Bowel Movements 0 0 Result Diagram: 10/11/1640 10/11/16 0640 A/P Assessment and Plan 46-year-old female initially brought in as a stroke alert, intubated for airway protection. Probable drug overdose.?Fentanyl. Patient refused to elaborate on what she took at home. She has been extubated and is stable on room air. However continues to complain of intractable nausea and dry heaving. She has chronic neck pain and also complains of abdominal pain requesting narcotics. Toxic metabolic encephalopathy: Likely secondary to drug overdose,? Fentanyl - Resolved. Patient reports her pain management doctor discontinued all of her narcotics except for fentanyl 75 g patch. She was reportedly started on baclofen and Zanaflex for chronic neck pain. NPO. Keep Morphine 2 mg IV PRN. Would not escalate as there is no other objective evidence for severe pain. Intractable nausea and vomiting: Could be related to withdrawal from narcotics versus benzodiazepines. It is unclear what the patient was taking at home. - GI following. NGT placed. Endoscopy scheduled for today. Antiemetics as needed. - Low dose Ativan as needed. - Protonix. - IVF Anemia -H dropped from 13.9 to 7.4. -no witnessed GI bleed from nurse. patient has hx of GI bleed. -increase protonix to 40 gm IV BID. -patient scheduled for EGD today. -repeat H/H stat now. Chronic pain: See above. Patient having issues with medications change by her pain management doctor. She was reportedly weaned off Narcotics. - PT is NPO for now. Keep IV Morphine as needed. Plan to wean off when she is no longer NPO. Sinus bradycardia: This was likely related to overdose from unknown drugs. Her heart rate has completely recovered she is now in sinus rhythm. Continue to monitor on telemetry. -most likely her baseline. Status post intubation/extubation for airway protection: Doing well on room air. Depression/anxiety: continue with Lexapro. - Psychiatry consulted Ativan as needed GI prophylaxis: PPI. Stool softener PRN constipation. Discharge Planning Patient scheduled for EGD today. She continues to be symptomatic so requires continue hospitalization. Venus Davis MD Oct 11, 2016 09:53
[2016-10-11] MEDS: DEXT 5%-NACL 0.9% 1000 ML INJ 1,000 ML IV SCH ×2 (11:30→23:25)
[2016-10-11 11:44] LABS: HEMATOCRIT 21.8 % (35.0-46.0)
[2016-10-11] MEDS ORDERED: FAMOTIDINE 20 MG/2 ML VIAL ONE (12:49)
[2016-10-11] MEDS: HEPARIN SODIUM - SQ 10,000 UNITS/ML VIAL SQ SCH ×2 (13:00)
[2016-10-11] MEDS ORDERED: PROPOFOL 200 MG/20 ML AMP IV PUSH ONE (13:20)
[2016-10-11] MEDS ORDERED: DO NOT ADM ANY ANTICOAGULANT DRUGS PRN (14:45)
--- NOTE | 2016-10-11 14:52 | PD.PROCEDR ---
GI Procedure REFERRING PHYSICIAN Dr. Gan PROCEDURE PERFORMED EGD with balloon dilation INDICATION FOR PROCEDURE Nausea vomiting epigastric pain PROCEDURE: The procedure, risks and benefits were discussed with Ms. Augustine and informed consent was obtained. Anesthesia sedated her with Diprivan. She was placed in the left lateral decubitus position. EGD: The Pentax videoscope was introduced through the oropharynx and advanced to the second portion of the duodenum under direct visualization. Retroflexion was performed in the stomach. FINDINGS: The esophagus this was normal The stomach there were surgical changes consistent with Daren-en-Y the patient had a small gastric pouch there was a tightness at the level of the anastomosis but an exact stricture this was dilated with a balloon dilator size 16-18 postdilatation view was unremarkable and the tightness was still there this is of unclear significance but the gastric pouch mucosa was unremarkable The small bowel was unremarkable ESTIMATED BLOOD LOSS: None SPECIMENS REMOVED: None COMPLICATIONS: None IMPRESSION: Surgical changes consistent with Daren-en-Y Anastomotic tightness or stricture PLAN: Will get an upper GI study to further assess the stricture Continue with current supportive care Tony Foster MD Oct 11, 2016 14:52
[2016-10-11] MEDS: ONDANSETRON HCL 4 MG/2 ML VIAL IV PUSH PRN (16:31)
--- NOTE | 2016-10-11 17:20 | RADRPT ---
EXAM DATE/TIME: 10/11/2016 16:47 [facility] COMPARISON: No previous studies available for comparison. INDICATIONS : Stricture. FLUORO TIME: 1.1 minutes IMAGE COUNT: 10 CONTRAST: 1. Liquid E-Z Paque Barium Sulfate (60% w/v, 41% w.w) MEDICAL HISTORY : Smoker. SURGICAL HISTORY : Cholecystectomy. Hysterectomy. Gastric bypass. ENCOUNTER: Initial ACUITY: 3 months PAIN SCORE: 10/10 LOCATION: Abdomen. FINDINGS: A single contrast upper GI was performed. There is evidence of achalasia or achalasia-like process o f the distal esophagus with dilatation of the esophagus and smooth stricture of the distal esophagus. Correlation with endoscopy findings is suggested. There is partial obstruction with fluid level not ed in the mid to upper esophagus. The patient is status post gastric bypass with gastrojejunostomy no larry to be patent. CONCLUSION: Achalasia or achalasia-like process resulting in moderate partial obstruction. Fluid level is noted to the mid to upper esophagus. Alex Herrera MD on October 11, 2016 at 17:11 Board Certified Radiologist. This report was verified electronically.
[2016-10-11 19:12] LABS: HEMATOCRIT 21.6 % (35.0-46.0)
[2016-10-12] VITALS (12 sets, daily range): BP systolic 99–129; BP diastolic 51–77; PULSE 56–81; RESP 16–20; TEMP 97.7–98.9; O2SAT 93–99
[2016-10-12 01:34] LABS: HEMATOCRIT 20.2 % (35.0-46.0)
[2016-10-12] MEDS: MORPHINE SULFATE 4 MG/ML INJ IV PRN ×3 (02:22→16:18)
[2016-10-12] MEDS ORDERED: diphenhydrAMINE HCL 25 MG CAP PO ONE (02:30)
[2016-10-12] MEDS: INSULIN NovoLIN REGULAR SUPPLEMENTAL SCALE SQ SCH ×6 (04:00→20:00)
[2016-10-12] MEDS: RESP: ALBUTEROL 2.5 MG/IPRATROPIUM 0.5 MG NEB (SCH) INH ×2 (04:00→10:55)
[2016-10-12] MEDS: CHLORHEXIDINE GLUCONATE 2 % 1 PACK (2 CLOTHS) TOP SCH (04:00)
[2016-10-12] MEDS: HEPARIN SODIUM - SQ 10,000 UNITS/ML VIAL SQ SCH ×2 (05:26→11:23)
[2016-10-12] MEDS: predniSONE 10 MG TAB PO SCH (07:58)
[2016-10-12] MEDS: DOCUSATE SODIUM 50 MG/SENNA 8.6 MG TAB PO SCH ×2 (07:58→19:22)
[2016-10-12] MEDS: ESCITALOPRAM OXALATE 10 MG TAB PO SCH (07:58)
[2016-10-12] MEDS: LORazepam 2 MG/ML VIAL IV PRN ×3 (07:59→22:15)
[2016-10-12] MEDS: PANTOPRAZOLE SODIUM 40 MG VIAL IV SCH ×2 (08:03→19:24)
[2016-10-12] MEDS: DEXT 5%-NACL 0.9% 1000 ML INJ 1,000 ML IV SCH ×2 (11:20→23:15)
--- NOTE | 2016-10-12 12:30 | HHI.PR ---
Subjective Remarks Follow-up for dominant pain and anemia Patient stated that she continues abdominal pain. She has not had any episodes of GI bleed. Patient has not had a bowel movement yet. Continues to feel nauseous. Patient very anxious to go back to [place]. Her nurse is at the bedside. Her and daughter also at the bedside. Should a lot of questions that were answered. Objective Vitals Vital Signs Date Time Temp Pulse Resp B/P Pulse Ox O2 Delivery O2 Flow Rate FiO2 10/12/16 12:00 98.7 61 17 114/64 96 10/12/16 10:55 96 21 10/12/16 09:45 98.4 69 17 112/69 95 10/12/16 09:45 98.4 69 17 112/69 95 10/12/16 09:27 98.9 78 17 107/68 95 10/12/16 09:24 98.9 78 17 107/68 95 10/12/16 08:00 98.3 67 19 102/64 95 10/12/16 06:28 98.6 56 20 99/58 93 10/12/16 06:13 98.4 81 18 110/70 96 10/12/16 00:00 98.0 63 19 104/51 96 10/11/16 22:00 63 10/11/16 20:00 99.4 86 19 164/96 94 10/11/16 16:00 98.1 59 18 158/85 98 10/11/16 14:23 98.0 87 18 147/93 98 10/11/16 13:55 98.3 82 18 145/85 100 Room Air 10/11/16 13:45 82 12 145/83 100 Room Air 10/11/16 13:30 98.2 92 16 144/85 100 Room Air I/O 10/11/16 10/11/16 10/11/16 10/12/16 10/12/16 10/12/16 07:00 15:00 23:00 07:00 15:00 23:00 Intake Total 764 ml 1182 ml 120 ml 476 ml Output Total 400 ml 350 ml 600 ml Balance 364 ml 832 ml -480 ml 476 ml Intake Oral 120 ml 0 ml 120 ml IV Total 644 ml 682 ml 0 ml 476 ml Other 500 ml Output Urine Total 400 ml 350 ml 600 ml # Bowel Movements 0 0 0 Result Diagram: 10/12/16 0050 10/11/16 0640 Imaging Last Impressions Upper GI Series 10/11/16 0000 Signed Impressions: Service Date/Time: Tuesday, October 11, 2016 16:47 - CONCLUSION: Achalasia or achalasia-like process resulting in moderate partial obstruction. Fluid level is noted to the mid to upper esophagus. Alex Herrera MD Abdomen Ultrasound 10/09/16 0000 Signed Impressions: Service Date/Time: Sunday, October 09, 2016 14:46 - CONCLUSION: No acute abnormalities. Status post cholecystectomy. Arnaud Lisa MD Neck CTA 10/08/16712 Signed Impressions: Service Date/Time: Saturday, October 08, 2016 07:27 - CONCLUSION: Normal examination. Elida Roman MD Head CTA 10/08/16712 Signed Impressions: Service Date/Time: Saturday, October 08, 2016 07:27 - CONCLUSION: Unremarkable study. Elida Roman MD Head CT 10/08/16 0000 Signed Impressions: Service Date/Time: Saturday, October 08, 2016 07:17 - CONCLUSION: Unremarkable study. Elida Roman MD Chest X-Ray 10/08/16 0000 Signed Impressions: Service Date/Time: Saturday, October 08, 2016 08:30 - CONCLUSION: Slight prominence of the left hilar shadow probably technical and attention to this area on follow up chest x-rays is suggested. 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 Elida Roman MD Objective Remarks GENERAL: in NAD CARDIOVASCULAR: Regular rate and rhythm without murmurs, gallops, or rubs. RESPIRATORY: Breath sounds equal bilaterally. No accessory muscle use. GASTROINTESTINAL: + TTP in the epigastric area, non-tender, nondistended. Negative for any peritoneal signs. MUSCULOSKELETAL: No cyanosis, or edema. BACK: Nontender without obvious deformity. No CVA tenderness. Medications and IVs Current Medications Lorazepam (Ativan Inj) 2 mg STK-MED ONCE .ROUTE ; Start 10/08/16 at 07:19; Stop 10/08/16 at 07:20; Status DC Iohexol 95 ml 95 ml STK-MED ONCE IV Last administered on 10/08/16 07:30; Start 10/08/16 at 07:30; Stop 10/08/16 at 07:31; Status DC Sodium Chloride (NS 1000 ml Inj) 1,000 ml @ 1,000 mls/hr Q1H IV Last administered on 10/08/16 07:57; Start 10/08/16 at 07:38; Stop 10/08/16 at 08:37 ; Status DC Lorazepam (Ativan Inj) 1 mg ONCE PRN IV PUSH Seizure Last administered on 22:20; Start 10/08/16 at 07:45 Dexamethasone Sodium Phosphate 10 mg 10 mg ONCE ONCE IV PUSH Last administered on 10/08/16 07:57; Start 10/08/16 at 07:45; Stop 10/08/16 at 07:46 ; Status DC Levetriacetam (Keppra 1000 Mg Inj) 100 ml @ 400 mls/hr BOLUS ONCE IV Last administered on 10/08/16 10:46; Start 10/08/16 at 08:15; Stop 10/08/16 at 08:29 ; Status DC Succinylcholine Chloride (Quelicin Inj) 100 mg ONCE ONCE IM ; Start 10/08/16 at 08:15; Stop 10/08/16 at 08:16; Status DC Etomidate (Amidate Inj) 20 mg ONCE ONCE IV PUSH ; Start 10/08/16 at 08:15; Stop 10/08/16 at 08:16; Status DC Etomidate (Amidate Inj) 20 mg STK-MED ONCE .ROUTE Last administered on 09:14; Start 10/08/16 at 08:13; Stop 10/08/16 at 08:14; Status DC Succinylcholine Chloride 200 mg 200 mg STK-MED ONCE .ROUTE Last administered on 10/08/16 09:13; Start 10/08/16 at 08:13; Stop 10/08/16 at 08:14; Status DC Propofol 100 ml @ 0 mls/hr TITRATE IV Last administered on 10/08/16 10:52; Start 10/08/16 at 08:30; Stop 10/08/16 at 12:51; Status DC Propofol (Diprivan 1000 Mg/100ml Inj) 100 ml @ As Directed STK-MED ONCE .ROUTE ; Start 10/08/16 at 08:29; Stop 10/08/16 at 08:30; Status DC Atropine Sulfate (Atropine Inj) 1 mg ONCE ONCE IV PUSH Last administered on 10:12; Start 10/08/16 at 10:15; Stop 10/08/16 at 10:16; Status DC Atropine Sulfate 1 mg 1 mg STK-MED ONCE .ROUTE ; Start 10/08/16 at 10:09; Stop 10/08/16 at 10:10; Status DC Potassium Chloride (KCl 20 Meq Premix Inj) 100 ml @ 50 mls/hr ONCE ONCE IV Last administered on 10/08/16 11:00; Start 10/08/16 at 11:00; Stop 10/08/16 at 12:59; Status DC Pantoprazole Sodium (Protonix Inj) 40 mg DAILY IV Last administered on 08:43; Start 10/08/16 at 12:00; Stop 10/11/16 at 09:48; Status DC Albuterol/ Ipratropium (Duoneb Neb) 1 ampule Q6HR NEB INH Last administered on 10/10/16 08:55; Start 10/08/16 at 12:00; Stop 10/12/16 at 12:04; Status DC Heparin Sodium (Porcine) (Heparin Inj) 5,000 units Q12H SQ Last administered on 10/12/16 05:26; Start 10/08/16 at 13:00 Miscellaneous Information 1 [id number] Last administered on 10/08/16 12:00; Start 10/08/16 at 12:00 Chlorhexidine Gluconate (Chlorhexidine 2% Cloth) 3 pack Taper DAILY@04 TOP Last administered on 10/10/16 02:09; Start 10/09/16 at 04:00; Stop 10/05/17 at 03:59 Chlorhexidine Gluconate (Chlorhexidine 2% Cloth) 3 pack UNSCH PRN TOP HYGIENIC CARE; Start 10/08/16 at 12:00 Senna/Docusate Sodium (Hilary-Colace) 1 tab BID PO Last administered on 07:58; Start 10/08/16 at 12:00 Magnesium Hydroxide (Milk Of Magnponcho Liq) 30 ml Q12H PRN PO MILD - MODERATE CONSTIPATION Last administered on 10/12/16t 07:58; Start 10/08/16 at 12:00 Sennosides (Senokot) 17.2 mg Q12H PRN PO MODERATE - SEVERE CONSTIPATION; Start 10/08/16 at 12:00 Bisacodyl (Dulcolax Supp) 10 mg DAILY PRN RECTAL SEVERE CONSITIPATION; Start at 12:00 Lactulose 30 ml 30 ml DAILY PRN PO SEVERE CONSITIPATION; Start 10/08/16 at 12: 00 Potassium Chloride 100 ml @ 50 mls/hr Q2H PRN IV For Potassium 2.8 - 3.2 mEq/L ; Start 10/08/16 at 12:00; Stop 10/11/16 at 11:49; Status DC Potassium Chloride (KCl 20 Meq Premix Inj) 100 ml @ 50 mls/hr Q2H PRN IV For Potassium 2.8 - 3.2 mEq/L; Start 10/08/16 at 12:00; Stop 10/11/16 at 11:49; Status DC Potassium Bicarb/ Potassium Chloride 50 meq 50 meq UNSCH PRN PO For Potassium 3.3 - 3.5 mEq/L; Start 10/08/16 at 12:00; Stop 10/11/16 at 11:49; Status DC Potassium Chloride 100 ml @ 25 mls/hr UNSCH PRN IV For Potassium 3.3 - 3.5 mEq /L; Start 10/08/16 at 12:00; Stop 10/11/16 at 11:49; Status DC Potassium Chloride 100 ml @ 50 mls/hr Q2H PRN IV For Potassium 3.3 - 3.5 mEq/L ; Start 10/08/16 at 12:00; Stop 10/11/16 at 11:49; Status DC Magnesium Sulfate/ Sodium Chloride (Magnesium Sulfate Inj/NS Inj) 100 ml @ 50 mls/hr UNSCH PRN IV For Magnesium 0.9 - 1.1 mg/dL; Start 10/08/16 at 12:00; Stop 10/11/16 at 11:49; Status DC Magnesium Oxide 800 mg 800 mg UNSCH PRN PO For Magnesium 1.2 - 1.6 mg/dL; Start 10/08/16 at 12:00; Stop 10/11/16 at 11:49; Status DC Magnesium Sulfate/ Sodium Chloride (Magnesium Sulfate Inj/NS Inj) 100 ml @ 50 mls/hr UNSCH PRN IV For Magnesium 1.2 - 1.6 mg/dL; Start 10/08/16 at 12:00; Stop 10/11/16 at 11:49; Status DC Potassium Phosphate 2000 mg 2,000 mg Q4H PRN PO For Phosphorus < 2.5 mg/dL; Start 10/08/16 at 12:00; Stop 10/11/16 at 11:49; Status DC Sodium Phosphate/ Sodium Chloride (Sodium Phosphate Inj/NS 250 ml Inj) 250 ml @ 42 mls/hr UNSCH PRN IV For Phosphorus < 2.5 mg/dL; Start 10/08/16 at 12:00; Stop 10/11/16 at 11:49; Status DC Potassium Phosphate 2000 mg 2,000 mg UNSCH PRN PO/TUBE SEE LABEL COMMENTS; Start 10/08/16 at 12:00; Stop 10/11/16 at 11:49; Status DC Potassium Phosphate/Sodium Chloride (Potassium Phosphate Inj/NS 250 ml Inj) 260 ml @ 42 mls/hr UNSCH PRN IV SEE LABEL COMMENTS; Start 10/08/16 at 12:00; Stop 10/11/16 at 11:49; Status DC Dextrose (D50w (Vial) Inj) 50 ml UNSCH PRN IV HYPOGLYCEMIA-SEE COMMENTS; Start 10/08/16 at 12:00 Glucagon (Glucagon Inj) 1 mg UNSCH PRN OTHER HYPOGLYCEMIA-SEE COMMENTS; Start 10/08/16 at 12:00 Insulin Human Regular 1 1 Q4H SQ Last administered on 10/12/16 04:00; Start at 12:00 Dextrose/Sodium Chloride (D5W-NS 1000 ml Inj) 1,000 ml @ 84 mls/hr [id number] IV Last administered on 10/11/16 23:25; Start 10/08/16 at 12:00 Prednisone 10 mg 10 mg DAILY PO Last administered on 10/12/16 07:58; Start at 09:00 Fentanyl Citrate (fentaNYL DRIP) 250 ml @ 0 mls/hr TITRATE IV Last administered on 10/08/16 12:30; Start 10/08/16 at 12:15; Stop 10/08/16 at 14:56 ; Status DC Ondansetron HCl (Zofran Inj) 4 mg Q6HR PRN IV PUSH nausea vomiting Last administered on 10/11/16 16:31; Start 10/08/16 at 22:15 Morphine Sulfate (Morphine Inj) 2 mg ONCE ONCE IV PUSH Last administered on 06:30; Start 10/09/16 at 06:30; Stop 10/09/16 at 06:35; Status DC Morphine Sulfate (Morphine Inj) 8 mg STK-MED ONCE .ROUTE ; Start 10/09/16 at 06: 34; Stop 10/09/16 at 06:35; Status DC Fentanyl (Duragesic 75 Mcg Patch.72 Hr) 1 patch ONCE ONCE T-DERMAL Last administered on 10/09/16 08:14; Start 10/09/16 at 08:15; Stop 10/09/16 at 08:16 ; Status DC Alprazolam (Xanax) 0.25 mg ONCE ONCE PO Last administered on 10/09/16 14:18; Start 10/09/16 at 08:15; Stop 10/09/16 at 08:16; Status DC Escitalopram Oxalate (Lexapro) 10 mg DAILY PO ; Start 10/09/16 at 09:00; Stop at 09:00; Status DC Escitalopram Oxalate (Lexapro) 10 mg DAILY PO Last administered on 10/12/16 07 :58; Start 10/10/16 at 09:00 Lorazepam (Ativan) 0.5 mg Q8H PRN PO MODERATE TO SEVERE ANXIETY Last administered on 10/10/16 09:42; Start 10/09/16 at 09:00; Stop 10/10/16 at 09:48 ; Status DC Morphine Sulfate (Morphine Inj) 8 mg STK-MED ONCE .ROUTE Last administered on 18:29; Start 10/09/16 at 18:29; Stop 10/09/16 at 18:30; Status DC Lorazepam (Ativan Inj) 1 mg Q4H PRN IV ANXIETY Last administered on 10/12/16 07:59; Start 10/09/16 at 18:45 Morphine Sulfate (Morphine Inj) 2 mg Q4H PRN IV PAIN>5 AND HR>60 Last administered on 10/12/16 11:15; Start 10/09/16 at 18:45 Lorazepam (Ativan Inj) 2 mg NOW ONCE IM ; Start 10/09/16 at 18:45; Stop at 18:46; Status Cancel Pantoprazole Sodium (Protonix Inj) 40 mg BID IV Last administered on 10/12/16 08:03; Start 10/11/16 at 21:00 Famotidine (Pepcid Inj) 20 mg STK-MED ONCE .ROUTE ; Start 10/11/16 at 12:49; Stop 10/11/16 at 12:50; Status DC Propofol (Diprivan 200 Mg/20 ml Inj) 200 mg STK-MED ONCE IV PUSH ; Start at 13:20; Stop 10/11/16 at 13:33; Status DC Miscellaneous Information ALL NURSING DEPARTME... UNSCH PRN .XX SEE LABEL COMMENTS; Start 10/11/16 at 14:45; Stop 10/12/16 at 14:44 Diphenhydramine HCl (Benadryl) 25 mg ONCE ONCE PO Last administered on 05:26; Start 10/12/16 at 02:30; Stop 10/12/16 at 02:31; Status DC A/P Assessment and Plan 46-year-old female initially brought in as a stroke alert, intubated for airway protection. Probable drug overdose.?Fentanyl. Patient refused to elaborate on what she took at home. She has been extubated and is stable on room air. However continues to complain of intractable nausea and dry heaving. She has chronic neck pain and also complains of abdominal pain requesting narcotics. Toxic metabolic encephalopathy: Likely secondary to drug overdose,? Fentanyl - Resolved. Patient reports her pain management doctor discontinued all of her narcotics except for fentanyl 75 g patch. She was reportedly started on baclofen and Zanaflex for chronic neck pain. on Morphine 2 mg IV PRN. Would not escalate as there is no other objective evidence for severe pain. Intractable nausea/vomiting/abdominal pain: -GI is following. -Patient had EGD done yesterday which showed stricture. -She then had a upper GI series which showed alkalization which structures and partial obstruction. -Patient also had a drastic decrease in hemoglobin. -GI physician aware of results and pending recommendation. Anemia -Most likely secondary to GI bleed. GI is following. -H dropped from 13.9 to 7.4 and continues to slowly drop. Today hemoglobin is 6.8. -no witnessed GI bleed from nurse. patient has hx of GI bleed. She has not had a bowel movement yet. -Continue protonix to 40 gm IV BID. -She is being transfused with packed red blood cells. We'll follow up with posttransfusion and continue to trend H&H. Chronic pain: See above. Patient having issues with medications change by her pain management doctor. - continue IV Morphine as needed. Sinus bradycardia: This was likely related to overdose from unknown drugs. Her heart rate has completely recovered she is now in sinus rhythm. Continue to monitor on telemetry. -most likely her baseline. Status post intubation/extubation for airway protection: Doing well on room air. Depression/anxiety: continue with Lexapro. - Psychiatry consulted Ativan as needed GI prophylaxis: PPI. Stool softener PRN constipation. Venus Davis MD Oct 12, 2016 12:30
[2016-10-12] MEDS ORDERED: RESP: ALBUTEROL 2.5 MG/IPRATROPIUM 0.5 MG NEB (PRN) NEB (12:45)
[2016-10-12 13:16] LABS: HEMATOCRIT 26.1 % (35.0-46.0); REVIEW FLAG FINAL
[2016-10-12 14:01] LABS: BICARBONATE 29.6 MEQ/L (21.0-32.0); POTASSIUM 3.5 MEQ/L (3.5-5.1)
[2016-10-12 14:49] LABS: HEMATOCRIT 26.1 % (35.0-46.0); MEAN CELL VOLUME 84.1 FL (80.0-100.0); MEAN CORPUSCULAR HEMOGLOBIN 27.1 PG (27.0-34.0); MEAN CORPUSCULAR HGB CONC 32.2 % (32.0-36.0); PLATELET COUNT 165 TH/MM3 (150-450); RED BLOOD COUNT 3.27 MIL/MM3 (4.00-5.30); RED CELL DISTRIBUTION WIDTH 16.1 % (11.6-17.2); REVIEW FLAG FINAL; WHITE BLOOD COUNT 4.9 TH/MM3 (4.0-11.0)
[2016-10-12] MEDS ORDERED: oxyCODONE/ACETAMINOPHEN 5 MG/325 MG TAB PO PRN (15:45)
--- NOTE | 2016-10-12 15:51 | HHI.GIFU ---
Subjective Remarks Pt resting in bed, asking to go home. SHe tried to eat breakfast and threw up, says she would like a softer diet and ensure. Denies blodo in stool, last BM monday and was not black. No hematemesis (Shanika Gayle) Objective Vitals I&O Vital Signs Date Time Temp Pulse Resp B/P Pulse Ox O2 Delivery O2 Flow Rate FiO2 10/12/16 12:00 98.7 61 17 114/64 96 10/12/16 11:30 98.7 64 17 104/66 95 10/12/16 10:55 96 21 10/12/16 09:45 98.4 69 17 112/69 95 10/12/16 09:45 98.4 69 17 112/69 95 10/12/16 09:27 98.9 78 17 107/68 95 10/12/16 09:24 98.9 78 17 107/68 95 10/12/16 08:00 98.3 67 19 102/64 95 10/12/16 06:28 98.6 56 20 99/58 93 10/12/16 06:13 98.4 81 18 110/70 96 10/12/16 00:00 98.0 63 19 104/51 96 10/11/16 22:00 63 10/11/16 20:00 99.4 86 19 164/96 94 10/11/16 16:00 98.1 59 18 158/85 98 I/O 10/11/16 10/11/16 10/11/16 10/12/16 10/12/16 10/12/16 07:00 15:00 23:00 07:00 15:00 23:00 Intake Total 764 ml 1182 ml 120 ml 476 ml 857 ml Output Total 400 ml 350 ml 600 ml 1550 ml Balance 364 ml 832 ml -480 ml 476 ml -693 ml Intake Oral 120 ml 0 ml 120 ml 240 ml IV Total 644 ml 682 ml 0 ml 476 ml 117 ml Packed Cells 500 ml Other 500 ml Output Urine Total 400 ml 350 ml 600 ml 1550 ml # Bowel Movements 0 0 0 0 Laboratory Laboratory Tests Test 10/11/16 10/12/16 10/12/16 10/12/16 17:49 00:50 03:09 13:01 Hemoglobin 7.3 6.8 8.9 Hematocrit 21.6 20.2 26.1 Blood Type B POSITIVE Antibody Screen NEGATIVE Crossmatch Leukocyte-Reduced Red Blood Cells Blood Bank Comment White Blood Count 4.9 Red Blood Count 3.27 Mean Corpuscular Volume 84.1 Mean Corpuscular Hemoglobin 27.1 Mean Corpuscular Hemoglobin 32.2 Concent Red Cell Distribution Width 16.1 Platelet Count 165 Mean Platelet Volume 7.4 Sodium Level 142 Potassium Level 3.5 Chloride Level 107 Carbon Dioxide Level 29.6 Anion Gap 5 Blood Urea Nitrogen 4 Creatinine 0.36 Estimat Glomerular Filtration 193 Rate Random Glucose 107 Calcium Level 8.3 Date/Time Procedure Status Source Growth 10/08/16 08:10 Aerobic Blood Culture - Preliminary Resulted Blood Peripheral NO GROWTH IN 4 DAYS 10/08/16 08:10 Anaerobic Blood Culture - Preliminary Resulted Blood Peripheral NO GROWTH IN 4 DAYS Imaging Last Impressions Upper GI Series 10/11/16 Signed Impressions: Service Date/Time: Tuesday, October 11, 2016 16:47 - CONCLUSION: Achalasia or achalasia-like process resulting in moderate partial obstruction. Fluid level is noted to the mid to upper esophagus. Alex Herrera MD Abdomen Ultrasound 10/09/16 Signed Impressions: Service Date/Time: Sunday, October 09, 2016 14:46 - CONCLUSION: No acute abnormalities. Status post cholecystectomy. Arnaud Lisa MD Neck CTA 10/08/16712 Signed Impressions: Service Date/Time: Saturday, October 08, 2016 07:27 - CONCLUSION: Normal examination. Elida Roman MD Head CTA 10/08/16712 Signed Impressions: Service Date/Time: Saturday, October 08, 2016 07:27 - CONCLUSION: Unremarkable study. Elida Roman MD Head CT 10/08/16 Signed Impressions: Service Date/Time: Saturday, October 08, 2016 07:17 - CONCLUSION: Unremarkable study. Elida Roman MD Chest X-Ray 10/08/16 Signed Impressions: Service Date/Time: Saturday, October 08, 2016 08:30 - CONCLUSION: Slight prominence of the left hilar shadow probably technical and attention to this area on follow up chest x-rays is suggested. 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 Elida Roman MD Physical Exam HEENT: PERRL; normocephalic; atraumatic; no jaundice. CHEST: CTA CARDIAC: RRR ABDOMEN: Soft, nondistended, mild TTP mid abd; no hepatosplenomegaly; bowel sounds are present in all four quadrants. EXTREMITIES: No clubbing, cyanosis, or edema. SKIN: Normal; no rash; no jaundice. PATIENT SAFETY OFFICER: No focal deficits; alert and oriented times three. (Shanika Gayle) Assessment and Plan Plan ASSESSMENT - Nausea and vomiting, no hematemesis. likely achalasia, will need esophageal manometry to confirm, d/w pt. Patient with history of gastric bypass and gastric ulcers. Last EGD 5 years ago , per patient. Having epigastric abdominal pain, very tender on palpation. Normal BM. WBC normal. T. Bili normal, liver enzymes normal. UGI --> achalasia or achalasia like process resulting in partial obstruction, fluid level mid to upper esophagus EGD --> anastamotic tightness or stricture Drug overdose? Toxicology positive for benzodiazepines, negative for opiates, barbiturates, amphetamines, cocaine, and cannabinoids. Had altered mental status on admission with GCS of 5. On Trazodone at home per ER documentation. Patient refused to discuss with me what medication she currently takes at home. Neck CTA, Head CTA unremarkable. Head CT unremarkable. Brain MRI unremarkable. - anemia - drop to 6.8, receiving blood. was 13 on admission, suspect this is multifactorial and r/t dilution effect and malnutrition. no obvious GI loss - Bradycardia, EKG showed sinus bradycardia, per attending PLAN - f/u with GI after discharge for esophageal manometry to confirm achalasia - f/u with GI to discuss better nutrition - chew carefully, eat slowly - soft diet - nutritional supplements - monitor HH - transfuse as needed -Symptomatic management -Continue Protonix -Monitor labs - pt okay to d/c from GI standpoint with prompt follow up in home state Patient seen and examined by Dr. Foster and myself and this note is written on his behalf. (Shanika Gayle) Physician Comments Patient seen and examined Agree with above Continue with current supportive care Monitor labs Regarding her anemia this is multifactorial but there is no obvious GI bleed at this point and I think this is the patient's baseline With gastric bypass many times we will see anemia due to B-12 deficiency and iron deficiency in addition to malnutrition With regards to the nausea and vomiting this is probably secondary to achalasia patient will need manometry to confirm and if confirmed she will need surgical intervention versus Botox injection to deal with this chronic situation Patient is cleared from a GI standpoint for discharge (Tony Foster MD ) Shanika Gayle Oct 12, 2016 15:51 Tony Foster MD Oct 12, 2016 23:08
[2016-10-12] MEDS ORDERED: fentaNYL 75 MCG/HR PATCH T-DERMAL SCH (17:00)
[2016-10-12] MEDS: oxyCODONE/ACETAMINOPHEN 5 MG/325 MG TAB PO PRN (19:24)
[2016-10-13] VITALS: BP 102/55; PULSE 54; RESP 16; TEMP 97.6; O2SAT 96
[2016-10-13] MEDS: oxyCODONE/ACETAMINOPHEN 5 MG/325 MG TAB PO PRN (00:47)
[2016-10-13] MEDS: HEPARIN SODIUM - SQ 10,000 UNITS/ML VIAL SQ SCH (00:48)
[2016-10-13 04:00] VITALS: BP 93/51; PULSE 53; RESP 16; TEMP 97.5; O2SAT 93
[2016-10-13] MEDS: CHLORHEXIDINE GLUCONATE 2 % 1 PACK (2 CLOTHS) TOP SCH (04:00)
[2016-10-13] MEDS: INSULIN NovoLIN REGULAR SUPPLEMENTAL SCALE SQ SCH ×3 (04:00→08:00)
[2016-10-13 05:56] LABS: HEMATOCRIT 25.5 % (35.0-46.0); MEAN CELL VOLUME 83.3 FL (80.0-100.0); MEAN CORPUSCULAR HEMOGLOBIN 28.3 PG (27.0-34.0); PLATELET COUNT 168 TH/MM3 (150-450); RED BLOOD COUNT 3.06 MIL/MM3 (4.00-5.30); REVIEW FLAG FINAL; WHITE BLOOD COUNT 5.2 TH/MM3 (4.0-11.0)
[2016-10-13 08:00] VITALS: BP 99/64; PULSE 67; RESP 16; TEMP 97.9; O2SAT 96
[2016-10-13] MEDS: LORazepam 2 MG/ML VIAL IV PRN (08:00)
[2016-10-13] MEDS: predniSONE 10 MG TAB PO SCH (08:00)
[2016-10-13] MEDS: PANTOPRAZOLE SODIUM 40 MG VIAL IV SCH (08:00)
[2016-10-13] MEDS: ESCITALOPRAM OXALATE 10 MG TAB PO SCH (08:00)
[2016-10-13] MEDS: DOCUSATE SODIUM 50 MG/SENNA 8.6 MG TAB PO SCH (08:00)
[2016-10-13] MEDS ORDERED: SENN1TAB PO (10:01)
[2016-10-13] MEDS ORDERED: OXYC1TAB63 PO (10:01)
[2016-10-13] MEDS ORDERED: PROT40TA PO (10:01)
--- NOTE | 2016-10-13 10:03 | HHI.DCPOC ---
Discharge Care Plan Diagnosis: (1) Gastric anastomotic stricture (2) Achalasia (3) Altered mental status (4) Anemia Goals to Promote Your Health * To prevent worsening of your condition and complications * To maintain your health at the optimal level Directions to Meet Your Goals Take your medications as prescribed Follow your dietary instruction Follow activity as directed Keep your appointments as scheduled Take your immunizations and boosters as scheduled If your symptoms worsen call your PCP, if no PCP go to Urgent Care Center or Emergency Room Smoking is Dangerous to Your Health. Avoid second hand smoke Call the 24-hour hour crisis hotline for domestic abuse at Venus Davis MD Oct 13, 2016 10:03
--- NOTE | 2016-10-13 10:04 | HHI.DS ---
Discharge Summary Admission Date Oct 08, 2016 at 10:05 Discharge Date: Oct 13, 2016 Admitting Diagnosis Possible overdose, Altered mental status. (1) Overdose of muscle relaxant ICD Code: T48.201A Diagnosis: Principal (2) Achalasia ICD Code: K22.0 Diagnosis: Secondary (3) Anemia ICD Code: D64.9 Diagnosis: Principal (4) Adjustment disorder with depressed mood ICD Code: F43.21 Diagnosis: Secondary (5) Gastric anastomotic stricture ICD Code: K92.9 Diagnosis: Secondary Procedures See hospital course. Brief History - From Admission The patient is a 46-year-old female with multiple orthopedic surgeries on her neck, back, and knee who presented to [facility] emergency department with altered mental status. The patient is visiting from [facility] , and on arrival she was found to have a GCS score of 5. The patient was last seen normal at approximately 06:00 a.m. and the family thought that she was having a seizure-like activity. He called 9-1-1 and up on EMS arrival no focal deficit seen. See H&P for further patient. CBC/BMP: 10/13/16 0509 10/12/16 1301 Significant Findings Laboratory Tests Test 10/11/16 10/11/16 10/11/16 10/12/16 06:40 11:27 17:49 00:50 Red Blood Count 2.63 MIL/MM3 (4.00-5.30) Hemoglobin 7.4 GM/DL 7.3 GM/DL 7.3 GM/DL 6.8 GM/DL (11.6-15.3) (11.6-15.3) (11.6-15.3) (11.6-15.3) Hematocrit 21.9 % 21.8 % 21.6 % 20.2 % (35.0-46.0) (35.0-46.0) (35.0-46.0) (35.0-46.0) Sodium Level 147 MEQ/L (136-145) Potassium Level 3.4 MEQ/L (3.5-5.1) Chloride Level 112 MEQ/L (98-107) Creatinine 0.40 MG/DL (0.50-1.00) Calcium Level 8.0 MG/DL (8.5-10.1) Test 10/12/16 10/13/16 13:01 05:09 Red Blood Count 3.27 MIL/MM3 3.06 MIL/MM3 (4.00-5.30) (4.00-5.30) Hemoglobin 8.9 GM/DL 8.6 GM/DL (11.6-15.3) (11.6-15.3) Hematocrit 26.1 % 25.5 % (35.0-46.0) (35.0-46.0) Blood Urea Nitrogen 4 MG/DL (7-18) Creatinine 0.36 MG/DL (0.50-1.00) Random Glucose 107 MG/DL (74-106) Calcium Level 8.3 MG/DL (8.5-10.1) Imaging Last Impressions Upper GI Series 10/11/16 0000 Signed Impressions: Service Date/Time: Tuesday, October 11, 2016 16:47 - CONCLUSION: Achalasia or achalasia-like process resulting in moderate partial obstruction. Fluid level is noted to the mid to upper esophagus. Alex Herrera MD Abdomen Ultrasound 10/09/16 0000 Signed Impressions: Service Date/Time: Sunday, October 09, 2016 14:46 - CONCLUSION: No acute abnormalities. Status post cholecystectomy. Arnaud Lisa MD Neck CTA [id number]/[id number] Signed Impressions: Service Date/Time: Saturday, October 08, 2016 07:27 - CONCLUSION: Normal examination. Elida Roman MD Head CTA [id number]/[id number] Signed Impressions: Service Date/Time: Saturday, October 08, 2016 07:27 - CONCLUSION: Unremarkable study. Elida Roman MD Head CT 10/08/16 0000 Signed Impressions: Service Date/Time: Saturday, October 08, 2016 07:17 - CONCLUSION: Unremarkable study. Elida Roman MD Chest X-Ray 10/08/16 0000 Signed Impressions: Service Date/Time: Saturday, October 08, 2016 08:30 - CONCLUSION: Slight prominence of the left hilar shadow probably technical and attention to this area on follow up chest x-rays is suggested. 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 Elida Roman MD PE at Discharge GENERAL: in NAD CARDIOVASCULAR: Regular rate and rhythm without murmurs, gallops, or rubs. RESPIRATORY: Breath sounds equal bilaterally. No accessory muscle use. GASTROINTESTINAL: + TTP in the epigastric area, non-tender, nondistended. Negative for any peritoneal signs. MUSCULOSKELETAL: No cyanosis, or edema. BACK: Nontender without obvious deformity. No CVA tenderness. Pt update on day of discharge Follow for abdominal pain anemia Patient's abdominal pain has improved. She asked me to write her prescription for pain medication. When I asked her about her chronic pain medication. She stated that she didnt bring any of it on vacation. I asked patient since this is her chronic medication in which she requires treatment every day why didnt she bring her medication. She looked at me with confusion. Patient says she had a bowel movement and it was normal. She denies any blood in development. She denies any GI bleed. Patient stated that she is tolerating oral intake and is very anxious to go home today. Dealt with patient's using her cell phone. I also dealt with GI attending Dr. Foster in regards to patient's anemia. Per Dr. Foster he's not expecting any source for GI bleed. He stated that it is multifactorial and chronic in nature. Per Dr. Foster patient is clear from the GI perspective to be discharge. Hospital Course 46-year-old female initially brought in as a stroke alert, intubated for airway protection. Probable drug overdose.?Fentanyl. Patient refused to elaborate on what she took at home. She has been extubated and is stable on room air. However continues to complain of intractable nausea and dry heaving. She has chronic neck pain and also complains of abdominal pain requesting narcotics. Toxic metabolic encephalopathy: Likely secondary to drug overdose,? Fentanyl - Patient was admitted to the ICU for close monitoring. She was intubated and extubated for airway protection. Patient reports in the ICU her pain management doctor discontinued all of her narcotics except for fentanyl 75 g patch. But when I asked her the date of discharge she said that she has pain medication at home but did not bring it. She was reportedly started on baclofen and Zanaflex for chronic neck pain. Symptoms resolve quickly. Intractable nausea/vomiting/abdominal pain: -GI was consulted. -Patient had EGD which showed stricture. -She then had a upper GI series which showed alkalization which structures and partial obstruction. Anemia -H dropped from 13.9 to 7.4 then to 6.8. Patient was transfused with 1 pack of red blood cells. She responded appropriately. -Per GI this is not secondary to any GI bleed. This is secondary to multifactorial in which she has poor nutrition, gastric bypass surgery, and dilutional. After transfusion her H&H was stable. Chronic pain: See above. Patient having issues with medications change by her pain management doctor. - Patient told conflicting stories in regards to her pain regimen. Since she did have epigastric pain shortly duration of Percocet was given. Sinus bradycardia: This was likely related to overdose from unknown drugs. Her heart rate has completely recovered she is now in sinus rhythm. Continue to monitor on telemetry. -most likely her baseline. Depression/anxiety: continue with Lexapro. - Psychiatry consulted Ativan as needed Pt Condition on Discharge: Stable Discharge Disposition: Discharge Home Discharge Time: > 30 minutes Discharge Instructions DIET: Follow Instructions for: As Tolerated, No Restrictions Activities you can perform: Regular-No Restrictions Follow up Referrals: Gastroenterology Surgical - 1 Week New Medications: Pantoprazole (Protonix) 40 Mg Tab 40 MG PO DAILY Reflux #30 Ref 0 TAB Oxycodone-Acetaminophen (Oxycodone-Acetaminophen) 5-325 mg Tab 1 TAB PO Q6H PRN moderate to severe pain #20 Ref 0 TAB Sennosides-Docusate Sodium (Senna Plus 8.6-50 mg) 1 Tab Tab 1 TAB PO BID PRN constipation #20 Ref 0 TAB Continued Medications: Baclofen (Baclofen) 10 Mg Tab 10 MG PO Q8HR PRN MUSCLE SPASM Ref 0 TAB Escitalopram (Escitalopram) 10 Mg Tab 10 MG PO DAILY #30 Ref 0 TAB Levothyroxine (Levothyroxine) 100 Mcg Tab 100 MCG PO DAILY Thyroid #30 Ref 0 TAB Prednisone (Prednisone) 10 Mg Tab 10 MG PO DAILY Ref 0 TAB Tizanidine (Tizanidine) 4 Mg Cap 4 MG PO TID Muscle Spasm Ref 0 CAP Trazodone (Trazodone) 100 Mg Tablet 200 MG PO HS Control Depression #90 Ref 0 TAB Discontinued Medications: Naproxen (Naproxen) 375 Mg Tab 375 MG PO BID PRN PAIN SCALE 1 TO 10 #60 Ref 0 TAB Venus Davis MD Oct 13, 2016 10:04
[2016-10-13 10:41] VITALS: O2SAT 96
== END 2016-10-13 10:42 | disposition home or self-care (01) | DRG 917 ==
LOC: NEPC 07:04 → NEDA 10:05 → HIME 11:15 → N07B 10-10 13:10
PROVIDERS: ADMIT Family Medicine; ATTEND Family Medicine
PROC: 5A1945Z Respiratory Ventilation, 24-96 Consecutive Hours (ICD-10-PCS; 2016-10-08)
PROC: 0BH17EZ Insertion of Endotracheal Airway into Trachea, Via Natural or Artificial Opening (ICD-10-PCS; 2016-10-08)
PROC: 0D768ZZ Dilation of Stomach, Via Natural or Artificial Opening Endoscopic (ICD-10-PCS; principal; 2016-10-11 12:54)
DX: T48.201A Poisoning by unspecified drugs acting on muscles, accidental (unintentional), initial encounter (principal); J96.90 Respiratory failure, unspecified, unspecified whether with hypoxia or hypercapnia; G92 Toxic encephalopathy; Z99.11 Dependence on respirator [ventilator] status; E46 Unspecified protein-calorie malnutrition; R56.9 Unspecified convulsions; K22.0 Achalasia of cardia; Y92.9 Unspecified place or not applicable; D50.0 Iron deficiency anemia secondary to blood loss (chronic); F43.21 Adjustment disorder with depressed mood; E03.9 Hypothyroidism, unspecified; E53.8 Deficiency of other specified B group vitamins; E87.6 Hypokalemia; G89.29 Other chronic pain; M54.2 Cervicalgia; Z87.11 Personal history of peptic ulcer disease; Z90.710 Acquired absence of both cervix and uterus; Z98.84 Bariatric surgery status; Z72.0 Tobacco use; F41.8 Other specified anxiety disorders; R40.2430 Glasgow coma scale score 3-8, unspecified time
CPT/HCPCS: 31500; 36430; 36600; 51702; 70450; 70496; 70498; 70551; 71010; 74240; 76700; 80048; 80053; 80307; 82435; 82550; 82565; 82805; 82947; 82948; 83605; 83735; 84100; 84132; 84295; 84439; 84443; 84481; 84484; 84520; 84702; 85014; 85018; 85025; 85027; 85384; 85610; 85730; 86850; 86900; 86901; 86920; 87040; 87641; 93005; 93306; 94002; 94640; 94664; 95819; 96361; 96365; 96375; C1726; C9113; J0330; J0461; J1100; J1644; J1953; J2060; J2270; J2405; J3010; J3480; J7030; J7042; J7512; P9016; Q9967